=== PATIENT | female | born 1955 | race Hispanic/Latino ===

== ENCOUNTER 2021-05-08 16:33 | Emergency (ER) | payer BC, SELFPAY ==
[2021-05-08 17:09] LABS: Urine Blood Negative (Negative); Urine Glucose 2+ (Negative); Urine Protein Negative (Negative)
[2021-05-08 17:25] LABS: Hematocrit 39.5 % (36.0-45.0); RBC Red Blood Cell Count 4.18 M/uL (3.86-4.86)
[2021-05-08 17:26] LABS: Absolute Lymphocytes (CBC) 3.7 K/uL (0.7-4.9); Lymphocytes % 41.7 % (15.3-44.8); MPV 8.2 fL (7.6-11.3)
[2021-05-08 17:29] LABS: Protime INR 1.11
[2021-05-08 17:32] LABS: Barbiturates NEGATIVE (NEGATIVE); Benzodiazepines NEGATIVE (NEGATIVE); Cocaine NEGATIVE (NEGATIVE); METHAMPHETAM NEGATIVE (NEGATIVE); Methadone NEGATIVE (NEGATIVE); Opiates NEGATIVE (NEGATIVE); Phencyclidine NEGATIVE (NEGATIVE); THC Cannibis NEGATIVE (NEGATIVE)
[2021-05-08 17:45] LABS: ALT/SGPT 71 U/L (12-78); AST/SGOT 63 U/L (15-37); Albumin 4.4 g/dL (3.4-5.0); Alkaline Phosphatase 92 U/L (45-117); BUN Blood Urea Nitrogen 11 mg/dL (7-18); Bicarbonate 22 mmol/L (21-32); Bilirubin Total 0.3 mg/dL (0.2-1.0); Glucose Level 251 mg/dL (74-106); Potassium 3.4 mmol/L (3.5-5.1); Protein, Total 8.1 g/dL (6.4-8.2); Sodium Level 135 mmol/L (136-145)
[2021-05-08 17:47] LABS: Bilirubin Direct 0.1 mg/dL (0-0.2)
[2021-05-08] MEDS ORDERED: ACETAMINOPHEN 325 MG TABLET ONE (20:18)
--- OUTSIDE RECORDS SUMMARY | 2021-05-09 00:16 | XMS REPORT | Continuity of Care Document ---
:1955 Author Organization [facility] t Address [address] [place] [address] Dr. Lugo. [address] [place] [address] Care Team Providers Name Role Phone PCP, DOES NOT HAVE A Primary Care Physician Unavailable Yony Ceja MD Attending Clinician DR STELLA Attending Clinician Unavailable Provider, Urgent Care Attending Clinician Unavailable Clement DEXTER Attending Clinician Doctor Unassigned, Name Attending Clinician Unavailable Pcp, Does Not Have A Attending Clinician Bernie RN, T Attending Clinician Unavailable Only, Test Attending Clinician Unavailable Dennis MONTIEL Attending Clinician Brittany CRUZ S Attending Clinician Horacio SIM Attending Clinician Unavailable Yony CEJA Attending Clinician Unavailable WENDY Attending Clinician Unavailable DR STELLA Admitting Clinician Unavailable WENDY Admitting Clinician Unavailable Payers Payer Name Policy Type Policy Number Effective Date Expiration Date S ource Problems Condition Condition Condition Status Onset Resolution Last Treating Co mments Source Name Details Category Date Date Treatment Clinician Date Type 2 Type 2 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 1-21 ity of mellitus mellitus 00:00: [place] without without 00 Medical complicati complicati Br anch on, on, without without long-term long-term current current use of use of insulin insulin Arthritis Arthritis Disease Active 2015-02 Uni vers 1-11 ity of 00:00: [place] 00 [facility] Branch Hyperchole Hyperchole Disease Active U nivers sterolemia sterolemia 5-06 it y of 00:00: [place] 00 [facility] Essential Essential Disease Active 2016-0 Uni vers hypertensi hypertensi - it y of on on 00:00: [place] 00 Medical Branch Insomnia Insomnia Disease Active Unive rs 5- ity of 00:00: [place] 00 Medical Branch Allergies, Adverse Reactions, Alerts Allergy Allergy Status Severity Reaction(s) Onset Inactive Treating Comm ents Source Name Type Date Date Clinician Codeine Propensi Active Nausea Univers ty to and/or 09-18 ity of adverse Vomiting 00:00: [place] reaction 00 Medical s Branch Penicill Propensi Active Nausea Univer s ins ty to and/or 09-18 ity of adverse Vomiting 00:00: [place] reaction 00 Medical s Branch CODEINE DRUG Active N/V Univers INGREDI 09-18 ity of 00:00: [place] 00 Medical Branch PENICILL Drug Active N/V Univers INS Class 09-18 ity of 00:00: [place] 00 Medical Branch Social History Social Habit Start Date Stop Date Quantity Comments Source Exposure to Not sure [facility] SARS-CoV-2 (event) Medica l Branch Tobacco use and 2020-01-04 2020-01-04 Never used [facility] exposure 00:00:00 00:00:00 Medical Branch Alcohol intake 2020-01-04 2020-01-04 0 /d [facility] 00:00:00 00:00:00 Medical Branch Sex [birth year] [facility] 00:00:00 00:00:00 Medical Branch Smoking Status Start Date Stop Date Source Never smoker [facility] Medications Ordered Filled Start Stop Current Ordering Indication Dosage Frequency Signature Comments Components Source Medication Medication Date Date Medication? Clinician (SIG) Name Name meloxicam Yes 7.5mg Take 1 Unive rs 7.5 mg 9-23 tablet by ity of tablet 00:00: mouth [place] 00 daily. Medical Branch meloxicam Yes 7.5mg Take 1 Unive rs 7.5 mg 7-22 tablet by ity of tablet 00:00: mouth [place] 00 daily. Medical Branch meloxicam Yes 7.5mg Take 1 Unive rs 7.5 mg 7-22 tablet by ity of tablet 00:00: mouth [place] 00 daily. Medical Branch meloxicam Yes 7.5mg Take 1 Unive rs 7.5 mg 7-22 tablet by ity of tablet 00:00: mouth [place] 00 daily. Medical Branch meloxicam 2020- No 7.5mg Take 7.5 Un tiki 7.5 mg TbDL 7-21 08-21 mg by ity of 00:00: 04:59 mouth [place] 00 :00 daily for Medical 30 days. Branch meloxicam 2020- No 7.5mg Take 7.5 Un tiki 7.5 mg TbDL 7-21 08-21 mg by ity of 00:00: 04:59 mouth [place] 00 :00 daily for Medical 30 days. Branch meloxicam Yes 7.5mg Take 7.5 Uni vers 7.5 mg TbDL 3-26 mg by ity of 00:00: mouth [place] 00 daily. Medical Branch meloxicam Yes 7.5mg Take 1 Unive rs 7.5 mg 3-26 tablet by ity of tablet 00:00: mouth [place] 00 daily. Medical Branch meloxicam Yes 7.5mg Take 1 Unive rs 7.5 mg 3-26 tablet by ity of tablet 00:00: mouth [place] 00 daily. Medical Branch meloxicam Yes 7.5mg Take 1 Unive rs 7.5 mg 3-26 tablet by ity of tablet 00:00: mouth [place] 00 daily. Medical Branch meloxicam Yes 7.5mg Take 1 Unive rs 7.5 mg 3-26 tablet by ity of tablet 00:00: mouth [place] 00 daily. Medical Branch meloxicam 2020- No 7.5mg Take 1 Univ ers 7.5 mg 3-26 09-23 tablet by ity of tablet 00:00: 00:00 mouth [place] 00 :00 daily. Medical Branch meloxicam 2020- No 7.5mg Take 7.5 Un tiki 7.5 mg TbDL 3-26 03-26 mg by ity of 00:00: 00:00 mouth [place] 00 :00 daily. Medical Branch MAGNESIUM 2019-02 Yes Take by Univ ers OXIDE/MAG 1-16 mouth. ity of AA CHELATE 23:17: [place] (MAGNESIUM, 31 Medical OXIDE/AA Branch CHELATE, ORAL) ELISABETH 2019-02 Yes Take by Univers ASPIRIN 1-16 mouth. ity of ORAL 23:17: [place] [id number] Medical Branch MAGNESIUM 2020- Yes Take by Univ ers OXIDE/MAG 1-16 mouth. ity of AA CHELATE 23:17: [place] (MAGNESIUM, 31 Medical OXIDE/AA Branch CHELATE, ORAL) ELISABETH 2019-02 Yes Take by Univers ASPIRIN 1-16 mouth. ity of ORAL 23:17: [place] [address] Medical Branch MAGNESIUM 2019-02 Yes Take by Univ ers OXIDE/MAG 1-16 mouth. ity of AA CHELATE 23:17: [place] (MAGNESIUM, 31 Medical OXIDE/AA Branch CHELATE, ORAL) ELISABETH 2019-02 Yes Take by Univers ASPIRIN 1-16 mouth. ity of ORAL 23:17: [place] [address] Medical Branch MAGNESIUM 2019-02 Yes Take by Univ ers OXIDE/MAG 1-16 mouth. ity of AA CHELATE 23:17: [place] (MAGNESIUM, 31 Medical OXIDE/AA Branch CHELATE, ORAL) ELISABETH 2019-02 Yes Take by Univers ASPIRIN 1-16 mouth. ity of ORAL 23:17: [place] [address] Medical Branch MAGNESIUM 2019-02 Yes Take by Univ ers OXIDE/MAG 1-16 mouth. ity of AA CHELATE 23:17: [place] (MAGNESIUM, 31 Medical OXIDE/AA Branch CHELATE, ORAL) ELISABETH 2019-02 Yes Take by Univers ASPIRIN 1-16 mouth. ity of ORAL 23:17: [place] [address] Medical Branch MAGNESIUM 2019- Yes Take by Univ ers OXIDE/MAG 1-16 mouth. ity of AA CHELATE 17:17: [place] (MAGNESIUM, 31 Medical OXIDE/AA Branch CHELATE, ORAL) ELISABETH 2019-02 Yes Take by Univers ASPIRIN 1-16 mouth. ity of ORAL 17:17: [place] [address] Medical Branch MAGNESIUM 2019-02 Yes Take by Univ ers OXIDE/MAG 1-16 mouth. ity of AA CHELATE 17:17: [place] (MAGNESIUM, 31 Medical OXIDE/AA Branch CHELATE, ORAL) meloxicam 2019-02 Yes 7.5mg Take 7.5 Uni vers 7.5 mg TbDL 0-19 mg by ity of 00:00: mouth [place] 00 daily. Medical Branch meloxicam 2019-02 Yes 7.5mg Take 7.5 Uni vers 7.5 mg TbDL 0-19 mg by ity of 00:00: mouth [place] 00 daily. Medical Branch meloxicam 2020-1 Yes 7.5mg Take 7.5 Uni vers 7.5 mg TbDL 0-19 mg by ity of 00:00: mouth [place] 00 daily. Medical Branch meloxicam 2019-02 Yes 7.5mg Take 7.5 Uni vers 7.5 mg TbDL 0-19 mg by ity of 00:00: mouth [place] 00 daily. Medical Branch meloxicam 2019-02 Yes 7.5mg Take 7.5 Uni vers 7.5 mg TbDL 0-19 mg by ity of 00:00: mouth [place] 00 daily. Medical Branch meloxicam 2019-02- No 7.5mg Take 7.5 Un tiki 7.5 mg TbDL 0-19 03-26 mg by ity of 00:00: 00:00 mouth [place] 00 :00 daily. Medical Branch meloxicam No [id number] 15mg Take 1 U nivers 15 mg 6-05 07-06 tablet by ity of tablet 00:00: 04:59 mouth [place] 00 :00 daily for Medical 30 days. Branch triamcinolo 2019-2019- No 40mg Unive rs ne 07-09 ity of acetonide 15:30: 14:21 [place] (KENALOG) 00 :00 Medical injection Branch 40 mg triamcinolo 2019-2019- No 40mg 40 mg, Uni vers ne 07-09 Intramuscu ity of acetonide 15:30: 14:21 [place], ONCE, [place] (KENALOG[place] 00 :00 1 dose, Medical injection Fri Branch 40 mg 07/10/19 at 1030, Routine triamcinolo 2019-2019- No 40mg Unive rs ne 07-09 ity of acetonide 15:30: 14:21 [place] (KENALOG) 00 :00 Medical injection Branch 40 mg triamcinolo 2019-2019- No 40mg 40 mg, Uni vers ne 07-09 Intramuscu ity of acetonide 15:30: 14:21 [place]CE, [place] (KENALOG) 00 :00 1 dose, Medical injection Fri Branch 40 mg 07/10/19 at 1030, Routine METFORMIN 2017-02 Yes [id number] TAKE 2 U nivers ER 500 mg 1-08 TABLETS ity of 24 hr 00:00: TWICE A [place] tablet 00 DAY WITH Medical MEALS Branch METFORMIN 2017-02 Yes [id number] TAKE 2 U nivers ER 500 mg 1-08 TABLETS ity of 24 hr 00:00: TWICE A [place] tablet DAY WITH Medical MEALS Branch METFORMIN 2017-02 Yes [id number] TAKE 2 U nivers ER 500 mg 1-08 TABLETS ity of 24 hr 00:00: TWICE A [place] tablet DAY WITH Medical MEALS Branch METFORMIN 2017-02 Yes [id number] TAKE 2 U nivers ER 500 mg 1-08 TABLETS ity of 24 hr 00:00: TWICE A [place] tablet DAY WITH Medical MEALS Branch METFORMIN 2017-02 Yes [id number] TAKE 2 U nivers ER 500 mg 1-08 TABLETS ity of 24 hr 00:00: TWICE A [place] tablet DAY WITH Medical MEALS Branch METFORMIN 2017-02 Yes [id number] TAKE 2 U nivers ER 500 mg 1-08 TABLETS ity of 24 hr 00:00: TWICE A [place] tablet DAY WITH Medical MEALS Branch METFORMIN 2017-02 Yes [id number] TAKE 2 U nivers ER 500 mg 1-08 TABLETS ity of 24 hr 00:00: TWICE A [place] tablet DAY WITH Medical MEALS Branch METFORMIN 2017-02 Yes [id number] TAKE 2 U nivers ER 500 mg 1-08 TABLETS ity of 24 hr 00:00: TWICE A [place] tablet DAY WITH Medical MEALS Branch METFORMIN 2017-02 Yes [id number] TAKE 2 U nivers ER 500 mg 1-08 TABLETS ity of 24 hr 00:00: TWICE A [place] tablet DAY WITH [facility] Branch METFORMIN 2017-02 Yes [id number] TAKE 2 U nivers ER 500 mg 1-08 TABLETS ity of 24 hr 00:00: TWICE A [place] tablet DAY WITH Medical MEALS Branch METFORMIN 2017-02 Yes [id number] TAKE 2 U nivers ER 500 mg 1-08 TABLETS ity of 24 hr 00:00: TWICE A [place] tablet DAY WITH Medical MEALS Branch METFORMIN 2017-02 Yes [id number] TAKE 2 U nivers ER 500 mg 1-08 TABLETS ity of 24 hr 00:00: TWICE A [place] tablet DAY WITH Medical MEALS Branch METFORMIN 2017-02 Yes [id number] TAKE 2 U nivers ER 500 mg 1-08 TABLETS ity of 24 hr 00:00: TWICE A [place] tablet DAY WITH Medical MEALS Branch METFORMIN 2017-02 Yes [id number] TAKE 2 U nivers ER 500 mg 1-08 TABLETS ity of 24 hr 00:00: TWICE A [place] tablet 00 DAY WITH Medical MEALS Branch METFORMIN 2017- Yes [id number] TAKE 2 U nivers ER 500 mg 1-08 TABLETS ity of 24 hr 00:00: TWICE A [place] tablet DAY WITH Medical MEALS Branch METFORMIN 2018- Yes [id number] TAKE 2 U nivers ER 500 mg 1-08 TABLETS ity of 24 hr 00:00: TWICE A [place] tablet DAY WITH Medical MEALS Branch METFORMIN 2017- Yes [id number] TAKE 2 U nivers ER 500 mg 1-08 TABLETS ity of 24 hr 00:00: TWICE A [place] tablet DAY WITH Medical MEALS Branch METFORMIN 2017-02 Yes [id number] TAKE 2 U nivers ER 500 mg 1-08 TABLETS ity of 24 hr 00:00: TWICE A [place] tablet DAY WITH Medical MEALS Branch ONETOUCH 2018-0 Yes USE ONE Univer s ULTRA BLUE 8-28 STRIP TO ity o f TEST STRIP 00:00: CHECK [place] strip 00 GLUCOSE Medical ONCE DAILY Branch AND NEEDED ONETOUCH 2017-0 Yes USE ONE Univer s ULTRA BLUE 8-28 STRIP TO ity o f TEST STRIP 00:00: CHECK [place] strip 00 GLUCOSE Medical ONCE DAILY Branch AND NEEDED ONETOUCH 2018-0 Yes USE ONE Univer s ULTRA BLUE 8-28 STRIP TO ity o f TEST STRIP 00:00: CHECK [place] strip 00 GLUCOSE Medical ONCE DAILY Branch AND NEEDED ONETOUCH 2018-0 Yes USE ONE Univer s ULTRA BLUE 8-28 STRIP TO ity o f TEST STRIP 00:00: CHECK [place] strip 00 GLUCOSE Medical ONCE DAILY Branch AND NEEDED ONETOUCH 2018-0 Yes USE ONE Univer s ULTRA BLUE 8-28 STRIP TO ity o f TEST STRIP 00:00: CHECK [place] strip 00 GLUCOSE Medical ONCE DAILY Branch AND NEEDED ONETOUCH 2018-0 Yes USE ONE Univer s ULTRA BLUE 8-28 STRIP TO ity o f TEST STRIP 00:00: CHECK [place] strip 00 GLUCOSE Medical ONCE DAILY Branch AND NEEDED ONETOUCH 2018-0 Yes USE ONE Univer s ULTRA BLUE 8-28 STRIP TO ity o f TEST STRIP 00:00: CHECK [place] strip 00 GLUCOSE Medical ONCE DAILY Branch AND NEEDED ONETOUCH 2018-0 Yes USE ONE Univer s ULTRA BLUE 8-28 STRIP TO ity o f TEST STRIP 00:00: CHECK [place] strip 00 GLUCOSE Medical ONCE DAILY Branch AND NEEDED ONETOUCH [id number] Yes USE ONE Univer s ULTRA BLUE 8-28 STRIP TO ity o f TEST STRIP 00:00: CHECK [place] strip 00 GLUCOSE Medical ONCE DAILY Branch AND NEEDED ONETOUCH [id number] Yes USE ONE Univer s ULTRA BLUE 8-28 STRIP TO ity o f TEST STRIP 00:00: CHECK [place] strip 00 GLUCOSE Medical ONCE DAILY Branch AND NEEDED ONETOUCH 0 Yes USE ONE Univer s ULTRA BLUE 8-28 STRIP TO ity o f TEST STRIP 00:00: CHECK [place] strip 00 GLUCOSE Medical ONCE DAILY Branch AND NEEDED ONETOUCH 0 Yes USE ONE Univer s ULTRA BLUE 8-28 STRIP TO ity o f TEST STRIP 00:00: CHECK [place] strip 00 GLUCOSE Medical ONCE DAILY Branch AND NEEDED ONETOUCH 0 Yes USE ONE Univer s ULTRA BLUE 8-28 STRIP TO ity o f TEST STRIP 00:00: CHECK [place] strip 00 GLUCOSE Medical ONCE DAILY Branch AND NEEDED ONETOUCH 0 Yes USE ONE Univer s ULTRA BLUE 8-28 STRIP TO ity o f TEST STRIP 00:00: CHECK [place] strip 00 GLUCOSE Medical ONCE DAILY Branch AND NEEDED ONETOUCH Yes USE ONE Univer s ULTRA BLUE 8-28 STRIP TO ity o f TEST STRIP 00:00: CHECK [place] strip 00 GLUCOSE Medical ONCE DAILY Branch AND NEEDED ONETOUCH 0 Yes USE ONE Univer s ULTRA BLUE 8-28 STRIP TO ity o f TEST STRIP 00:00: CHECK [place] strip 00 GLUCOSE Medical ONCE DAILY Branch AND NEEDED ONETOUCH 0 Yes USE ONE Univer s ULTRA BLUE 8-28 STRIP TO ity o f TEST STRIP 00:00: CHECK [place] strip 00 GLUCOSE Medical ONCE DAILY Branch AND NEEDED ONETOUCH 0 Yes USE ONE Univer s ULTRA BLUE 8-28 STRIP TO ity o f TEST STRIP 00:00: CHECK [place] strip 00 GLUCOSE Medical ONCE DAILY Branch AND NEEDED TRESIBA Yes [id number] 40U INJECT 40 U nivers FLEXTOUCH 8-21 UNITS ity of U-200 200 00:00: UNDER THE [place] unit/mL (3 00 SKIN DAILY Med ical mL) InPn Branch TRESIBA Yes [id number] 40U INJECT 40 U nivers FLEXTOUCH 8-21 UNITS ity of U-200 200 00:00: UNDER THE [place] unit/mL (3 00 SKIN DAILY Med [facility]) [facility] [id number] 40U INJECT 40 U nivers FLEXTOUCH 8-21 UNITS ity of U-200 200 00:00: UNDER THE [place] unit/mL (3 00 SKIN DAILY Med ical mL) [facility] Yes [id number] 40U INJECT 40 U nivers FLEXTOUCH 8-21 UNITS ity of U-200 200 00:00: UNDER THE [place] unit/mL (3 00 SKIN DAILY Med ical mL) [facility] 0 Yes [id number] 40U INJECT 40 U nivers FLEXTOUCH 8-21 UNITS ity of U-200 200 00:00: UNDER THE [place] unit/mL (3 00 SKIN DAILY Med ical mL) [facility] Yes [id number] 40U INJECT 40 U nivers FLEXTOUCH 8-21 UNITS ity of U-200 200 00:00: UNDER THE [place] unit/mL (3 00 SKIN DAILY Med ical mL) [facility] Yes [id number] 40U INJECT 40 U nivers FLEXTOUCH 8-21 UNITS ity of U-200 200 00:00: UNDER THE [place] unit/mL (3 00 SKIN DAILY Med ical mL) [facility] 0 Yes [id number] 40U INJECT 40 U nivers FLEXTOUCH 8-21 UNITS ity of U-200 200 00:00: UNDER THE [place] unit/mL (3 00 SKIN DAILY Med ical mL) [facility] Yes [id number] 40U INJECT 40 U nivers FLEXTOUCH 8-21 UNITS ity of U-200 200 00:00: UNDER THE [place] unit/mL (3 00 SKIN DAILY Med ical mL) [facility] Yes [id number] 40U INJECT 40 U nivers FLEXTOUCH 8-21 UNITS ity of U-200 200 00:00: UNDER THE [place] unit/mL (3 00 SKIN DAILY Med ical mL) [facility] Yes [id number] 40U INJECT 40 U nivers FLEXTOUCH 8-21 UNITS ity of U-200 200 00:00: UNDER THE [place] unit/mL (3 00 SKIN DAILY Med ical mL) [facility] Yes [id number] 40U INJECT 40 U nivers FLEXTOUCH 8-21 UNITS ity of U-200 200 00:00: UNDER THE [place] unit/mL (3 00 SKIN DAILY Med ical mL) [facility] Yes [id number] 40U INJECT 40 U nivers FLEXTOUCH 8-21 UNITS ity of U-200 200 00:00: UNDER THE [place] unit/mL (3 00 SKIN DAILY Med ical mL) [facility] Yes [id number] 40U INJECT 40 U nivers FLEXTOUCH 8-21 UNITS ity of U-200 200 00:00: UNDER THE [place] unit/mL (3 00 SKIN DAILY Med ical mL) [facility] Yes [id number] 40U INJECT 40 U nivers FLEXTOUCH 8-21 UNITS ity of U-200 200 00:00: UNDER THE [place] unit/mL (3 00 SKIN DAILY Med ical mL) [facility] Yes [id number] 40U INJECT 40 U nivers FLEXTOUCH 8-21 UNITS ity of U-200 200 00:00: UNDER THE [place] unit/mL (3 00 SKIN DAILY Med ical mL) [facility] Yes [id number] 40U INJECT 40 U nivers FLEXTOUCH 8-21 UNITS ity of U-200 200 00:00: UNDER THE [place] unit/mL (3 00 SKIN DAILY Med ical mL) [facility] Yes [id number] 40U INJECT 40 U nivers FLEXTOUCH 8-21 UNITS ity of U-200 200 00:00: UNDER THE [place] unit/mL (3 00 SKIN DAILY Med ical mL) [facility] ATORVASTATI Yes TAKE 1 Univ ers N 40 mg 7-25 TABLET AT ity of tablet 00:00: BEDTIME [address] ATORVASTATI Yes TAKE 1 Univ ers N 40 mg 7-25 TABLET AT ity of tablet 00:00: BEDTIME [address] ATORVASTATI Yes TAKE 1 Univ ers N 40 mg 7-25 TABLET AT ity of tablet 00:00: BEDTIME Medical Branch ATORVASTATI [id number] Yes TAKE 1 Univ ers N 40 mg 7-25 TABLET AT ity of tablet 00:00: BEDTIME Medical Branch ATORVASTATI 2018-0 Yes TAKE 1 Univ ers N 40 mg 7-25 TABLET AT ity of tablet 00:00: BEDTIME Medical Branch ATORVASTATI 20180 Yes TAKE 1 Univ ers N 40 mg 7-25 TABLET AT ity of tablet 00:00: BEDTIME Medical Branch ATORVASTATI 0 Yes TAKE 1 Univ ers N 40 mg 7-25 TABLET AT ity of tablet 00:00: BEDTIME Medical Branch ATORVASTATI 0 Yes TAKE 1 Univ ers N 40 mg 7-25 TABLET AT ity of tablet 00:00: BEDTIME Medical Branch ATORVASTATI 0 Yes TAKE 1 Univ ers N 40 mg 7-25 TABLET AT ity of tablet 00:00: BEDTIME Medical Branch ATORVASTATI 0 Yes TAKE 1 Univ ers N 40 mg 7-25 TABLET AT ity of tablet 00:00: BEDTIME Medical Branch ATORVASTATI 0 Yes TAKE 1 Univ ers N 40 mg 7-25 TABLET AT ity of tablet 00:00: BEDTIME Medical Branch ATORVASTATI 20180 Yes TAKE 1 Univ ers N 40 mg 7-25 TABLET AT ity of tablet 00:00: BEDTIME Medical Branch ATORVASTATI 0 Yes TAKE 1 Univ ers N 40 mg 7-25 TABLET AT ity of tablet 00:00: BEDTIME Medical Branch ATORVASTATI 2018-0 Yes TAKE 1 Univ ers N 40 mg 7-25 TABLET AT ity of tablet 00:00: BEDTIME Medical Branch ATORVASTATI 20180 Yes TAKE 1 Univ ers N 40 mg 7-25 TABLET AT ity of tablet 00:00: BEDTIME Medical Branch ATORVASTATI 2018-0 Yes TAKE 1 Univ ers N 40 mg 7-25 TABLET AT ity of tablet 00:00: BEDTIME Medical Branch ATORVASTATI 0 Yes TAKE 1 Univ ers N 40 mg 7-25 TABLET AT ity of tablet 00:00: BEDTIME Medical Branch ATORVASTATI 2018-0 Yes TAKE 1 Univ ers N 40 mg 7-25 TABLET AT ity of tablet 00:00: BEDTIME [address] PIROXICAM 0 Yes [id number] TAKE 1 Uni vers 20 mg 2-09 CAPSULE ity of capsule 00:00: DAILY WITH [address] PIROXICAM 0 Yes [id number] TAKE 1 Uni vers 20 mg 2-09 CAPSULE ity of capsule 00:00: DAILY WITH [address] PIROXICAM Yes [id number] TAKE 1 Uni vers 20 mg 2-09 CAPSULE ity of capsule 00:00: DAILY WITH [address] PIROXICAM Yes [id number] TAKE 1 Uni vers 20 mg 2-09 CAPSULE ity of capsule 00:00: DAILY WITH [address] PIROXICAM Yes [id number] TAKE 1 Uni vers 20 mg 2-09 CAPSULE ity of capsule 00:00: DAILY WITH [address] PIROXICAM Yes [id number] TAKE 1 Uni vers 20 mg 2-09 CAPSULE ity of capsule 00:00: DAILY WITH [address] PIROXICAM Yes [id number] TAKE 1 Uni vers 20 mg 2-09 CAPSULE ity of capsule 00:00: DAILY WITH [address] PIROXICAM Yes [id number] TAKE 1 Uni vers 20 mg 2-09 CAPSULE ity of capsule 00:00: DAILY [address] [id number] TAKE 1 Uni vers 20 mg 2-09 CAPSULE ity of capsule 00:00: DAILY WITH [address] PIROXICAM 0 Yes [id number] TAKE 1 Uni vers 20 mg 2-09 CAPSULE ity of capsule 00:00: DAILY WITH [address] PIROXICAM Yes [id number] TAKE 1 Uni vers 20 mg 2-09 CAPSULE ity of capsule 00:00: DAILY WITH [address] PIROXICAM Yes [id number] TAKE 1 Uni vers 20 mg 2-09 CAPSULE ity of capsule 00:00: DAILY WITH [address] PIROXICAM Yes [id number] TAKE 1 Uni vers 20 mg 2-09 CAPSULE ity of capsule 00:00: [place]ILY [place] BREAKFAST Medical Branch PIROXICAM 2018-0 Yes [id number] TAKE 1 Uni vers 20 mg 2-09 CAPSULE ity of capsule 00:00: DAILY WITH [place] BREAKFAST Medical Branch PIROXICAM 2018-0 Yes [id number] TAKE 1 Uni vers 20 mg 2-09 CAPSULE ity of capsule 00:00: DAILY [place] BREAKFAST [place] Branch PIROXICAM 2018-0 Yes [id number] TAKE 1 Uni vers 20 mg 2-09 CAPSULE ity of capsule 00:00: DAILY [place] BREAKFAST [place] Branch PIROXICAM 2018-0 Yes [id number] TAKE 1 Uni vers 20 mg 2-09 CAPSULE ity of capsule 00:00: [place]ILY [place] [facility] insulin Yes [id number] 10U inject Univ ers aspart 1-03 10-15 ity of (NOVOLOG 00:00: Units [place] FLEXPEN) 00 under the Medica l 100 unit/mL skin 3 Branch injection (three) times daily before meals. Insulin Yes [id number] Use as Univ ers [place], 1-03 directed- ity of Disposable, 00:00: 5 times [place] (LISA PEN 00 daily Medical NEEDLE) 32 Branch gauge x 5/32" Ndle insulin Yes [id number] 10U inject Univ ers aspart 1-03 10-15 ity of (NOVOLOG 00:00: Units [place] FLEXPEN) 00 under the Medica l 100 unit/mL skin 3 Branch injection (three) times daily before meals. Insulin Yes [id number] Use as Univ ers [place], 1-03 directed- ity of Disposable, 00:00: 5 times [place] (LISA PEN 00 daily Medical NEEDLE) 32 Branch gauge x 5/32" Ndle insulin 2017- Yes [id number] 10U inject Univ ers aspart 1-03 10-15 ity of (NOVOLOG 00:00: Units [place] FLEXPEN) 00 under the Medica l 100 unit/mL skin 3 Branch injection (three) times daily before meals. Insulin Yes [id number] Use as Univ ers [place], 1-03 directed- ity of Disposable, 00:00: 5 times [place] (LISA PEN 00 daily Medical NEEDLE) 32 Branch gauge x 5/32" Ndle insulin 2017- Yes [id number] 10U inject Univ ers aspart 1-03 10-15 ity of (NOVOLOG 00:00: Units [place] FLEXPEN) 00 under the Medica l 100 unit/mL skin 3 Branch injection (three) times daily before meals. Insulin 2018-0 Yes [id number] Use as Univ ers [place], 1-03 directed- ity of Disposable, 00:00: 5 times [place] (LISA PEN 00 daily Medical NEEDLE) 32 Branch gauge x 5/32" Ndle insulin 2018-0 Yes [id number] 10U inject Univ ers aspart 1-03 10-15 ity of (NOVOLOG 00:00: Units [place] FLEXPEN) 00 under the Medica l 100 unit/mL skin 3 Branch injection (three) times daily before meals. Insulin 2018-0 Yes [id number] Use as Univ ers [place], 1-03 directed- ity of Disposable, 00:00: 5 times [place] (LISA PEN 00 daily Medical NEEDLE) 32 Branch gauge x 5/32" Ndle insulin 2018-0 Yes [id number] 10U inject Univ ers aspart 1-03 10-15 ity of (NOVOLOG 00:00: Units [place] FLEXPEN) 00 under the Medica l 100 unit/mL skin 3 Branch injection (three) times daily before meals. Insulin 2018-0 Yes [id number] Use as Univ ers [place], 1-03 directed- ity of Disposable, 00:00: 5 times [place] (LISA PEN 00 daily Medical NEEDLE) 32 Branch gauge x 5/32" Ndle insulin 2018-0 Yes [id number] 10U inject Univ ers aspart 1-03 10-15 ity of (NOVOLOG 00:00: Units [place] FLEXPEN) 00 under the Medica l 100 unit/mL skin 3 Branch injection (three) times daily before meals. Insulin 2018-0 Yes [id number] Use as Univ ers [place], 1-03 directed- ity of Disposable, 00:00: 5 times [place] (LISA PEN 00 daily Medical NEEDLE) 32 Branch gauge x 5/32" Ndle insulin 2018-0 Yes [id number] 10U inject Univ ers aspart 1-03 10-15 ity of (NOVOLOG 00:00: Units [place] FLEXPEN) 00 under the Medica l 100 unit/mL skin 3 Branch injection (three) times daily before meals. Insulin 2018-0 Yes [id number] Use as Univ ers [place], 1-03 directed- ity of Disposable, 00:00: 5 times [place] (LISA PEN 00 daily Medical NEEDLE) 32 Branch gauge x 5/32" Ndle insulin 2018-0 Yes [id number] 10U inject Univ ers aspart 1-03 10-15 ity of (NOVOLOG 00:00: Units [place] FLEXPEN) 00 under the Medica l 100 unit/mL skin 3 Branch injection (three) times daily before meals. Insulin 2018-0 Yes [id number] Use as Univ ers [place], 1-03 directed- ity of Disposable, 00:00: 5 times [place] (LISA PEN 00 daily Medical NEEDLE) 32 Branch gauge x 5/32" Ndle insulin 2017-0 Yes [id number] 10U inject Univ ers aspart 1-03 10-15 ity of (NOVOLOG 00:00: Units [place] FLEXPEN) 00 under the Medica l 100 unit/mL skin 3 Branch injection (three) times daily before meals. Insulin 2017-0 Yes [id number] Use as Univ ers [place], 1-03 directed- ity of Disposable, 00:00: 5 times [place] as (LISA PEN 00 daily Medical NEEDLE) 32 Branch gauge x 5/32" Ndle insulin 2017-0 Yes [id number] 10U inject Univ ers aspart 1-03 10-15 ity of (NOVOLOG 00:00: Units [place] FLEXPEN) 00 under the Medica l 100 unit/mL skin 3 Branch injection (three) times daily before meals. Insulin 2017-0 Yes [id number] Use as Univ ers [place], 1-03 directed- ity of Disposable, 00:00: 5 times [place] as (LISA PEN 00 daily Medical NEEDLE) 32 Branch gauge x 5/32" Ndle insulin 2017-0 Yes [id number] 10U inject Univ ers aspart 1-03 10-15 ity of (NOVOLOG 00:00: Units [place] FLEXPEN) 00 under the Medica l 100 unit/mL skin 3 Branch injection (three) times daily before meals. Insulin 2018-0 Yes [id number] Use as Univ ers [place], 1-03 directed- ity of Disposable, 00:00: 5 times [place] (LISA PEN 00 daily Medical NEEDLE) 32 Branch gauge x 5/32" Ndle insulin 2018-0 Yes [id number] 10U inject Univ ers aspart 1-03 10-15 ity of (NOVOLOG 00:00: Units [place] FLEXPEN) 00 under the Medica l 100 unit/mL skin 3 Branch injection (three) times daily before meals. Insulin 2017-0 Yes [id number] Use as Univ ers [place], 1-03 directed- ity of Disposable, 00:00: 5 times [place] (LISA PEN 00 daily Medical NEEDLE) 32 Branch gauge x 5/32" Ndle insulin 2017-0 Yes [id number] 10U inject Univ ers aspart 1-03 10-15 ity of (NOVOLOG 00:00: Units [place] FLEXPEN) 00 under the Medica l 100 unit/mL skin 3 Branch injection (three) times daily before meals. Insulin 2017- Yes [id number] Use as [facility] ers [place], 1-03 directed- ity of Disposable, 00:00: 5 times [place] (LISA PEN 00 daily Medical NEEDLE) 32 Branch gauge x 5/32" Ndle insulin Yes [id number] 10U inject Univ ers aspart 1-03 10-15 ity of (NOVOLOG 00:00: Units [place] FLEXPEN) 00 under the Medica l 100 unit/mL skin 3 Branch injection (three) times daily before meals. Insulin Yes [id number] Use as Univ ers [place], 1-03 directed- ity of Disposable, 00:00: 5 times [place] (LISA PEN 00 daily Medical NEEDLE) 32 Branch gauge x 5/32" Ndle insulin Yes [id number] 10U inject Univ ers aspart 1-03 10-15 ity of (NOVOLOG 00:00: Units [place] FLEXPEN) 00 under the Medica l 100 unit/mL skin 3 Branch injection (three) times daily before meals. Insulin Yes [id number] Use as Univ ers [place], 1-03 directed- ity of Disposable, 00:00: 5 times [place] (LISA PEN 00 daily Medical NEEDLE) 32 Branch gauge x 5/32" Ndle insulin 2017-0 Yes [id number] 10U inject Univ ers aspart 1-03 10-15 ity of (NOVOLOG 00:00: Units [place] FLEXPEN) 00 under the Medica l 100 unit/mL skin 3 Branch injection (three) times daily before meals. Insulin 0 Yes [id number] Use as [facility] ers [place], 1-03 directed- ity of Disposable, 00:00: 5 times [place] (LISA PEN 00 daily Medical NEEDLE) 32 Branch gauge x 5/32" Ndle insulin 2018-0 Yes [id number] 10U inject Univ ers aspart 1-03 10-15 ity of (NOVOLOG 00:00: Units [place] FLEXPEN) 00 under the Medica l 100 unit/mL skin 3 Branch injection (three) times daily before meals. Insulin Yes [id number] Use as [facility] ers [place], -03 directed- ity of Disposable, 00:00: 5 times [place] (LISA PEN 00 daily Medical NEEDLE) 32 Branch gauge x 5/32" Ndle multivitami 2016-02 Yes 1{capsu Take 1 Cap Univers n capsule 2-27 le} by mouth ity of 14:27: daily. [address] MAGNESIUM 2016-02 Yes Take by Univ ers OXIDE/MAG 2-27 mouth. ity of AA CHELATE 14:27: [place] (MAGNESIUM, 17 Medical OXIDE/AA Branch CHELATE, ORAL) ELISABETH 2016-02 Yes Take by Univers ASPIRIN 2-27 mouth. ity of ORAL 14:27: [address] multivitami 2016-02 Yes 1{capsu Take 1 Cap Univers n capsule 2-27 le} by mouth ity of 14:27: daily. [address] MAGNESIUM 2016-02 Yes Take by Univ ers OXIDE/MAG 2-27 mouth. ity of AA CHELATE 14:27: [place] (MAGNESIUM, 17 Medical OXIDE/AA Branch CHELATE, ORAL) ELISABETH 2016-02 Yes Take by Univers ASPIRIN 2-27 mouth. ity of ORAL 14:27: [address] multivitami 2016-02 Yes 1{capsu Take 1 Cap Univers n capsule 2-27 le} by mouth ity of 14:27: daily. [address] multivitami 2016-02 Yes 1{capsu Take 1 Cap Univers n capsule 2-27 le} by mouth ity of 14:27: daily. [address] MAGNESIUM 2016-02 Yes Take by Univ ers OXIDE/MAG 2-27 mouth. ity of AA CHELATE 14:27: [place] (MAGNESIUM, 17 Medical OXIDE/AA Branch CHELATE, ORAL) ELISABETH 2016-02 Yes Take by Univers ASPIRIN 2-27 mouth. ity of ORAL 14:27: [address] MAGNESIUM 2016-02 Yes Take by Univ ers OXIDE/MAG 2-27 mouth. ity of AA CHELATE 14:27: [place] (MAGNESIUM, 17 Medical OXIDE/AA Branch CHELATE, ORAL) ELISABETH 2016-02 Yes Take by Univers ASPIRIN 2-27 mouth. ity of ORAL 14:27: [address] multivitami 2017- Yes 1{capsu Take 1 Cap Univers n capsule 2-27 le} by mouth ity of 14:27: daily. [address] MAGNESIUM 2016- Yes Take by Univ ers OXIDE/MAG 2-27 mouth. ity of AA CHELATE 14:27: [place] (MAGNESIUM, 17 Medical OXIDE/AA Branch CHELATE, ORAL) ELISABETH 2016-02 Yes Take by Univers ASPIRIN 2-27 mouth. ity of ORAL 14:27: [address] multivitami 2016-02 Yes 1{capsu Take 1 Cap Univers n capsule 2-27 le} by mouth ity of 14:27: daily. [address] MAGNESIUM 2016-02 Yes Take by Univ ers OXIDE/MAG 2-27 mouth. ity of AA CHELATE 14:27: [place] (MAGNESIUM, 17 Medical OXIDE/AA Branch CHELATE, ORAL) ELISABETH 2016-02 Yes Take by Univers ASPIRIN 2-27 mouth. ity of ORAL 14:27: [address] multivitami 2016-02 Yes 1{capsu Take 1 Cap Univers n capsule 2-27 le} by mouth ity of 14:27: daily. [address] MAGNESIUM 2016-02 Yes Take by Univ ers OXIDE/MAG 2-27 mouth. ity of AA CHELATE 14:27: [place] (MAGNESIUM, 17 Medical OXIDE/AA Branch CHELATE, ORAL) ELISABETH 2016-02 Yes Take by Univers ASPIRIN 2-27 mouth. ity of ORAL 14:27: [address] multivitami 2016-02 Yes 1{capsu Take 1 Cap Univers n capsule 2-27 le} by mouth ity of 14:27: daily. [address] multivitami 2017- Yes 1{capsu Take 1 Cap Univers n capsule 2-27 le} by mouth ity of 14:27: daily. [address] multivitami 2017 Yes 1{capsu Take 1 Cap Univers n capsule 2-27 le} by mouth ity of 14:27: daily. [address] multivitami 2017 Yes 1{capsu Take 1 Cap Univers n capsule 2-27 le} by mouth ity of 14:27: daily. [address] multivitami 2017 Yes 1{capsu Take 1 Cap Univers n capsule 2-27 le} by mouth ity of 14:27: daily. [address] multivitami 2017 Yes 1{capsu Take 1 Cap Univers n capsule 2-27 le} by mouth ity of 14:27: daily. [address] MAGNESIUM 2016- Yes Take by Univ ers OXIDE/MAG 2-27 mouth. ity of AA CHELATE 14:27: [place] (MAGNESIUM, 17 Medical OXIDE/AA Branch CHELATE, ORAL) ELISABETH 2016-02 Yes Take by Univers ASPIRIN 2-27 mouth. ity of ORAL 14:27: [address] multivitami 2016-02 Yes 1{capsu Take 1 Cap Univers n capsule 2-27 le} by mouth ity of 14:27: daily. [address] MAGNESIUM 2016-02 Yes Take by Univ ers OXIDE/MAG 2-27 mouth. ity of AA CHELATE 14:27: [place] (MAGNESIUM, 17 Medical OXIDE/AA Branch CHELATE, ORAL) ELISABETH 2016-02 Yes Take by Univers ASPIRIN 2-27 mouth. ity of ORAL 14:27: [address] multivitami 2016-02 Yes 1{capsu Take 1 Cap Univers n capsule 2-27 le} by mouth ity of 14:27: daily. [address] MAGNESIUM 2016-02 Yes Take by Univ ers OXIDE/MAG 2-27 mouth. ity of AA CHELATE 14:27: [place] (MAGNESIUM, 17 Medical OXIDE/AA Branch CHELATE, ORAL) ELISABETH 2016-02 Yes Take by Univers ASPIRIN 2-27 mouth. ity of ORAL 14:27: [address] multivitami 2016-02 Yes 1{capsu Take 1 Cap Univers n capsule 2-27 le} by mouth ity of 14:27: daily. [address] MAGNESIUM 2016-02 Yes Take by Univ ers OXIDE/MAG 2-27 mouth. ity of AA CHELATE 14:27: [place] (MAGNESIUM, 17 Medical OXIDE/AA Branch CHELATE, ORAL) ELISABETH 2016-02 Yes Take by Univers ASPIRIN 2-27 mouth. ity of ORAL 14:27: [address] multivitami 2016-02 Yes 1{capsu Take 1 Cap Univers n capsule 2-27 le} by mouth ity of 08:27: daily. [address] multivitami 2016-02 Yes 1{capsu Take 1 Cap Univers n capsule 2-27 le} by mouth ity of 08:27: daily. [address] meloxicam 2016-02 Yes [id number] 7.5mg Take 1 Un tiki 7.5 mg 2-27 tablet by ity of tablet 00:00: mouth [place] 00 daily. Medical Branch metformin 2016-02 Yes [id number] 1000mg Take 2 Univers ER 500 mg 2-27 tablets by ity of 24 hr 00:00: mouth 2 [place] tablet 00 (two) Medical times Branch daily. meloxicam 2016-02 Yes [id number] 7.5mg Take 1 [place] 7.5 mg 2-27 tablet by ity of tablet 00:00: mouth [place] 00 daily. Medical Branch metformin 2016-02 Yes [id number] 1000mg Take 2 Univers ER 500 mg 2-27 tablets by ity of 24 hr 00:00: mouth 2 [place] tablet 00 (two) Medical times Branch daily. meloxicam 2016-02 Yes [id number] 7.5mg Take 1 [place] 7.5 mg 2-27 tablet by ity of tablet 00:00: mouth [place] 00 daily. Medical Branch metformin 2016-02 Yes [id number] 1000mg Take 2 Univers ER 500 mg 2-27 tablets by ity of 24 hr 00:00: mouth 2 [place] tablet 00 (two) Medical times Branch daily. meloxicam 2016-02 Yes [id number] 7.5mg Take 1 [place] 7.5 mg 2-27 tablet by ity of tablet 00:00: mouth [place] 00 daily. Medical Branch metformin 2016-02 Yes [id number] 1000mg Take 2 Univers ER 500 mg 2-27 tablets by ity of 24 hr 00:00: mouth 2 [place] tablet 00 (two) Medical times Branch daily. meloxicam 2016-02 Yes [id number] 7.5mg Take 1 [place] 7.5 mg 2-27 tablet by ity of tablet 00:00: mouth [place] 00 daily. Medical Branch metformin 2016-02 Yes [id number] 1000mg Take 2 Univers ER 500 mg 2-27 tablets by ity of 24 hr 00:00: mouth 2 [place] tablet 00 (two) Medical times Branch daily. meloxicam 2016-02 Yes [id number] 7.5mg Take 1 [place] 7.5 mg 2-27 tablet by ity of tablet 00:00: mouth [place] 00 daily. Medical Branch metformin 2016-02 Yes [id number] 1000mg Take 2 Univers ER 500 mg 2-27 tablets by ity of 24 hr 00:00: mouth 2 [place] tablet 00 (two) Medical times Branch daily. meloxicam 2016-02 Yes [id number] 7.5mg Take 1 [place] 7.5 mg 2-27 tablet by ity of tablet 00:00: mouth [place] 00 daily. Medical Branch metformin 2016-02 Yes [id number] 1000mg Take 2 Univers ER 500 mg 2-27 tablets by ity of 24 hr 00:00: mouth 2 [place] tablet 00 (two) Medical times Branch daily. meloxicam 2016-02 Yes [id number] 7.5mg Take 1 [place] 7.5 mg 2-27 tablet by ity of tablet 00:00: mouth [place] 00 daily. Medical Branch metformin 2016-02 Yes [id number] 1000mg Take 2 Univers ER 500 mg 2-27 tablets by ity of 24 hr 00:00: mouth 2 [place] tablet 00 (two) Medical times Branch daily. meloxicam 2016-02 Yes [id number] 7.5mg Take 1 [place] 7.5 mg 2-27 tablet by ity of tablet 00:00: mouth [place] 00 daily. Medical Branch metformin 2016-02 Yes [id number] 1000mg Take 2 Univers ER 500 mg 2-27 tablets by ity of 24 hr 00:00: mouth 2 [place] tablet 00 (two) Medical times Branch daily. meloxicam 2016-02 Yes [id number] 7.5mg Take 1 [place] 7.5 mg 2-27 tablet by ity of tablet 00:00: mouth [place] 00 daily. Medical Branch metformin 2016-02 Yes [id number] 1000mg Take 2 Univers ER 500 mg 2-27 tablets by ity of 24 hr 00:00: mouth 2 [place] tablet 00 (two) Medical times Branch daily. metformin 2016-02 Yes [id number] 1000mg Take 2 Univers ER 500 mg 2-27 tablets by ity of 24 hr 00:00: mouth 2 [place] tablet 00 (two) Medical times Branch daily. metformin 2016-02 Yes [id number] 1000mg Take 2 Univers ER 500 mg 2-27 tablets by ity of 24 hr 00:00: mouth 2 [place] tablet 00 (two) Medical times Branch daily. metformin 2016-02 Yes [id number] 1000mg Take 2 Univers ER 500 mg 2-27 tablets by ity of 24 hr 00:00: mouth 2 [place] tablet 00 (two) Medical times Branch daily. metformin 2016-02 Yes [id number] 1000mg Take 2 Univers ER 500 mg 2-27 tablets by ity of 24 hr 00:00: mouth 2 [place] tablet 00 (two) Medical times Branch daily. metformin 2016-02 Yes [id number] 1000mg Take 2 Univers ER 500 mg 2-27 tablets by ity of 24 hr 00:00: mouth 2 [place] tablet 00 (two) Medical times Branch daily. meloxicam 2016-02 Yes [id number] 7.5mg Take 1 [place] 7.5 mg 2-27 tablet by ity of tablet 00:00: mouth [place] 00 daily. Medical Branch metformin 2016-02 Yes [id number] 1000mg Take 2 Univers ER 500 mg 2-27 tablets by ity of 24 hr 00:00: mouth 2 [place] tablet 00 (two) Medical times Branch daily. meloxicam 2016-02 Yes [id number] 7.5mg Take 1 [place] 7.5 mg 2-27 tablet by ity of tablet 00:00: mouth [place] 00 daily. Medical Branch metformin 2016-02 Yes [id number] 1000mg Take 2 Univers ER 500 mg 2-27 tablets by ity of 24 hr 00:00: mouth 2 [place] tablet 00 (two) Medical times Branch daily. meloxicam 2016-02 Yes [id number] 7.5mg Take 1 [place] 7.5 mg 2-27 tablet by ity of tablet 00:00: mouth [place] 00 daily. Medical Branch metformin 2016-02 Yes [id number] 1000mg Take 2 Univers ER 500 mg 2-27 tablets by ity of 24 hr 00:00: mouth 2 [place] tablet 00 (two) Medical times Branch daily. meloxicam 2016-02- No [id number] 7.5mg Take 1 U nivers 7.5 mg 2-27 03-26 tablet by ity of tablet 00:00: 00:00 mouth [place] 00 :00 daily. Medical Branch valsartan-h 2014-02 Yes 1{tbl} Take 1 Tab Univers ydrochlorot 0-13 by mouth ity of hiazide 00:00: daily. [place] (DIOVAN-HCT 00 Medical ) 320-25 mg Branch per tablet valsartan-h 2014-02 Yes 1{tbl} Take 1 Tab Univers ydrochlorot 0-13 by mouth ity of hiazide 00:00: daily. [place] (DIOVAN-HCT Medical ) 320-25 mg Branch per tablet valsartan-h 2014-02 Yes 1{tbl} Take 1 Tab Univers ydrochlorot 0-13 by mouth ity of hiazide 00:00: daily. [place] (DIOVAN-[facility]CT [facility] ) 320-25 mg Branch per tablet valsartan-h 2014-02 Yes 1{tbl} Take 1 Tab Univers ydrochlorot 0-13 by mouth ity of hiazide 00:00: daily. [place] (DIOVAN-[facility]CT [facility] ) 320-25 mg Branch per tablet valsartan-h 2014-02 Yes 1{tbl} Take 1 Tab Univers ydrochlorot 0-13 by mouth ity of hiazide 00:00: daily. [place] (DIOVAN-[facility]CT [facility] ) 320-25 mg Branch per tablet valsartan-h 2014-02 Yes 1{tbl} Take 1 Tab Univers ydrochlorot 0-13 by mouth ity of hiazide 00:00: daily. [place] (DIOVAN-[facility]CT [facility] ) 320-25 mg Branch per tablet valsartan-h 2014-02 Yes 1{tbl} Take 1 Tab Univers ydrochlorot 0-13 by mouth ity of hiazide 00:00: daily. [place] (DIOVAN-[facility]CT [facility] ) 320-25 mg Branch per tablet valsartan-h 2014-02 Yes 1{tbl} Take 1 Tab Univers ydrochlorot 0-13 by mouth ity of hiazide 00:00: daily. [place] ([facility] ) 320-25 mg Branch per tablet valsartan-h 2014-02 Yes 1{tbl} Take 1 Tab Univers ydrochlorot 0-13 by mouth ity of hiazide 00:00: daily. [place] ([facility] ) 320-25 mg Branch per tablet valsartan-h 2014-02 Yes 1{tbl} Take 1 Tab Univers ydrochlorot 0-13 by mouth ity of hiazide 00:00: daily. [place] ([facility]CT [facility] ) 320-25 mg Branch per tablet valsartan-h 2014-02 Yes 1{tbl} Take 1 Tab Univers ydrochlorot 0-13 by mouth ity of hiazide 00:00: daily. [place] ([facility] ) 320-25 mg Branch per tablet valsartan-h 2014-02 Yes 1{tbl} Take 1 Tab Univers ydrochlorot 0-13 by mouth ity of hiazide 00:00: daily. [place] ([facility] ) 320-25 mg Branch per tablet valsartan-h 2014-02 Yes 1{tbl} Take 1 Tab Univers ydrochlorot 0-13 by mouth ity of hiazide 00:00: daily. [place] ([facility] ) 320-25 mg Branch per tablet valsartan-h 2014-02 Yes 1{tbl} Take 1 Tab Univers ydrochlorot 0-13 by mouth ity of hiazide 00:00: daily. [place] ([facility]OVAN-[facility] ) 320-25 mg Branch per tablet valsartan-h 2014-02 Yes 1{tbl} Take 1 Tab Univers ydrochlorot 0-13 by mouth ity of hiazide 00:00: daily. [place] ([facility] ) 320-25 mg Branch per tablet valsartan-h 2014-02 Yes 1{tbl} Take 1 Tab Univers ydrochlorot 0-13 by mouth ity of hiazide 00:00: daily. [place] ([facility]AN-[facility] ) 320-25 mg Branch per tablet valsartan-h 2014-02 Yes 1{tbl} Take 1 Tab Univers ydrochlorot 0-13 by mouth ity of hiazide 00:00: daily. [place] ([facility]AN-[facility] ) 320-25 mg Branch per tablet valsartan-h 2014-02 Yes 1{tbl} Take 1 Tab Univers ydrochlorot 0-13 by mouth ity of hiazide 00:00: daily. [place] ([facility]OVAN-[facility] ) 320-25 mg Branch per tablet clopidogrel 2014-02 Yes 75mg Take 75 mg Univers (PLAVIX) 75 0-12 by mouth ity of mg tablet 00:00: daily. [address] Branch fenofibrate 2014-02 Yes 134mg Take 134 U nivers micronized 0-12 mg by ity of (LOFIBRA) 00:00: mouth [place] 134 mg 00 daily. Medical capsule Branch clopidogrel 2014-02 Yes 75mg Take 75 mg Univers (PLAVIX) 75 0-12 by mouth ity of mg tablet 00:00: daily. [place] 00 Medical Branch fenofibrate 2014-02 Yes 134mg Take 134 U nivers micronized 0-12 mg by ity of (LOFIBRA) 00:00: mouth [place] 134 mg 00 daily. Medical capsule Branch clopidogrel 2014-02 Yes 75mg Take 75 mg Univers (PLAVIX) 75 0-12 by mouth ity of mg tablet 00:00: daily. Medical Branch fenofibrate 2014-02 Yes 134mg Take 134 U nivers micronized 0-12 mg by ity of (LOFIBRA) 00:00: mouth [place] 134 mg 00 daily. Medical capsule Branch clopidogrel 2014-02 Yes 75mg Take 75 mg Univers (PLAVIX) 75 0-12 by mouth ity of mg tablet 00:00: daily. Medical Branch fenofibrate 2014-02 Yes 134mg Take 134 U nivers micronized 0-12 mg by ity of (LOFIBRA) 00:00: mouth [place] 134 mg 00 daily. Medical capsule Branch clopidogrel 2014-02 Yes 75mg Take 75 mg Univers (PLAVIX) 75 0-12 by mouth ity of mg tablet 00:00: daily. Medical Branch fenofibrate 2014-02 Yes 134mg Take 134 U nivers micronized 0-12 mg by ity of (LOFIBRA) 00:00: mouth [place] 134 mg 00 daily. Medical capsule Branch clopidogrel 2014-02 Yes 75mg Take 75 mg Univers (PLAVIX) 75 0-12 by mouth ity of mg tablet 00:00: daily. Medical Branch fenofibrate 2014-02 Yes 134mg Take 134 U nivers micronized 0-12 mg by ity of (LOFIBRA) 00:00: mouth [place] 134 mg 00 daily. Medical capsule Branch clopidogrel 2014-02 Yes 75mg Take 75 mg Univers (PLAVIX) 75 0-12 by mouth ity of mg tablet 00:00: daily. Medical Branch fenofibrate 2014-02 Yes 134mg Take 134 U nivers micronized 0-12 mg by ity of (LOFIBRA) 00:00: mouth [place] 134 mg 00 daily. Medical capsule Branch clopidogrel 2014-02 Yes 75mg Take 75 mg Univers (PLAVIX) 75 0-12 by mouth ity of mg tablet 00:00: daily. Medical Branch fenofibrate 2014-02 Yes 134mg Take 134 U nivers micronized 0-12 mg by ity of (LOFIBRA) 00:00: mouth [place] 134 mg 00 daily. Medical capsule Branch fenofibrate 2014-02 Yes 134mg Take 134 U nivers micronized 0-12 mg by ity of (LOFIBRA) 00:00: mouth [place] 134 mg 00 daily. Medical capsule Branch fenofibrate 2014-02 Yes 134mg Take 134 U nivers micronized 0-12 mg by ity of (LOFIBRA) 00:00: mouth [place] 134 mg 00 daily. Medical capsule Branch fenofibrate 2014-02 Yes 134mg Take 134 U nivers micronized 0-12 mg by ity of (LOFIBRA) 00:00: mouth [place] 134 mg 00 daily. Medical capsule Branch fenofibrate 2014-02 Yes 134mg Take 134 U nivers micronized 0-12 mg by ity of (LOFIBRA) 00:00: mouth [place] 134 mg 00 daily. Medical capsule Branch clopidogrel 2014-02 Yes 75mg Take 75 mg Univers (PLAVIX) 75 0-12 by mouth ity of mg tablet 00:00: daily. Medical Branch fenofibrate 2014-02 Yes 134mg Take 134 U nivers micronized 0-12 mg by ity of (LOFIBRA) 00:00: mouth [place] 134 mg 00 daily. Medical capsule Branch fenofibrate 2014-02 Yes 134mg Take 134 U nivers micronized 0-12 mg by ity of (LOFIBRA) 00:00: mouth [place] 134 mg 00 daily. Medical capsule Branch fenofibrate 2014-02 Yes 134mg Take 134 U nivers micronized 0-12 mg by ity of (LOFIBRA) 00:00: mouth [place] 134 mg 00 daily. Medical capsule Branch clopidogrel 2014-02 Yes 75mg Take 75 mg Univers (PLAVIX) 75 0-12 by mouth ity of mg tablet 00:00: daily. Medical Branch fenofibrate 2014-02 Yes 134mg Take 134 U nivers micronized 0-12 mg by ity of (LOFIBRA) 00:00: mouth [place] 134 mg 00 daily. Medical capsule Branch clopidogrel 2014-02 Yes 75mg Take 75 mg Univers (PLAVIX) 75 0-12 by mouth ity of mg tablet 00:00: daily. Medical Branch fenofibrate 2014-02 Yes 134mg Take 134 U nivers micronized 0-12 mg by ity of (LOFIBRA) 00:00: mouth [place] 134 mg 00 daily. Medical capsule Branch clopidogrel 2014-02 Yes 75mg Take 75 mg Univers (PLAVIX) 75 0-12 by mouth ity of mg tablet 00:00: daily. [place] 00 Medical Branch fenofibrate 2014-02 Yes 134mg Take 134 U nivers micronized 0-12 mg by ity of (LOFIBRA) 00:00: mouth [place] 134 mg 00 daily. Medical capsule Branch clopidogrel 2014-02- No 75mg Take 75 mg Univers (PLAVIX) 75 0-12 03-26 by mouth ity of mg tablet 00:00: 00:00 daily. [place] 00 : Medical Branch clopidogrel 2014-02- No 75mg Take 75 mg Univers (PLAVIX) 75 0-12 -26 by mouth ity of mg tablet 00:00: 00:00 daily. [place] 00 :00 Medical Branch Vital Signs Vital Name Observation Time Observation Value Comments Source Systolic blood 2020-01-04 23:18:00 146 mm[Hg] Univer sity of pressure [facility] Diastolic blood 2020-01-04 23:18:00 71 mm[Hg] Unive rsity of [facility] Heart rate 2020-01-04 23:18:00 93 /min [facility] Body temperature 2020-01-04 23:18:00 37.17 Melodie [facility] Respiratory rate 2020-01-04 23:18:00 18 /min [facility] Body height 2020-01-04 23:18:00 158.8 cm [facility] Body weight 2020-01-04 23:18:00 72.576 kg [facility] BMI 2020-01-04 23:18:00 28.80 kg/m2 [facility] Oxygen saturation in 2020-01-04 23:18:00 96 /min [facility] Arterial blood by [facility] Pulse oximetry Branch Systolic blood 2020-01-04 23:18:00 146 mm[Hg] Univer sity of pressure [facility] Diastolic blood 2020-01-04 23:18:00 71 mm[Hg] Unive rsity of pressure [facility] Heart rate 2020-01-04 23:18:00 93 /min [facility] Body temperature 2020-01-04 23:18:00 37.17 Melodie Univ ersity of [facility] Respiratory rate 2020-01-04 23:18:00 18 /min Univ ersity of [facility] Body height 2020-01-04 23:18:00 158.8 cm Universi ty of [facility] Body weight 2020-01-04 23:18:00 72.576 kg Universi ty of [place] [facility] BMI 2020-01-04 23:18:00 28.80 kg/m2 Universi ty of [facility] Oxygen saturation in 2020-01-04 23:18:00 96 /min [facility] Arterial blood by [facility] Pulse oximetry Branch Systolic blood 2019-07-10 13:54:00 150 mm[Hg] Univer sity of pressure [facility] Branch Diastolic blood 2019-07-10 13:54:00 67 mm[Hg] Unive rsity of pressure [facility] Heart rate 2019-07-10 13:54:00 103 /min Universi ty of [facility] Body temperature 2019-07-10 13:54:00 37.17 Melodie Univ ersity of [facility] Body height 2019-07-10 13:54:00 160 cm Universi ty of [place] [facility] Body weight 2019-07-10 13:54:00 73.029 kg Universi ty of [place] [facility] BMI 2019-07-10 13:54:00 28.52 kg/m2 Universi ty of [facility] Systolic blood 2019-07-10 13:54:00 150 mm[Hg] Univer sity of pressure [facility] Branch Diastolic blood 2019-07-10 13:54:00 67 mm[Hg] Unive rsity of pressure [facility] Heart rate 2019-07-10 13:54:00 103 /min Universi ty of [facility] Body temperature 2019-07-10 13:54:00 37.17 Melodie [address]ity of [facility] Body height 2019-07-10 13:54:00 160 cm Universi ty of [facility] Body weight 2019-07-10 13:54:[address] [facility] Branch BMI 2019-07-10 13:54:00 28.52 kg/m2 Universi ty of [facility] Branch Procedures Procedure Date / Time Performed Performing Clinician Sourc e XR SHOULDER <2 VW 2019-07-10 13:57:59 Bryan Sim [facility] BILATERAL Medical Branch ASSIGNMENT OF BENEFITS 2019-07-10 13:45:11 Doctor Unassigned, No [facility] Name Medical Branch Encounters Start End Encounter Admission Attending Care Care Encounter Source Date/Time Date/Time Type Type Clinicians Facility Department ID 2020-11-10 2020-11-10 Telephone Marcial [facility] [id number] Univers 00:00:00 00:00:00 [facility] 350.1.13.10 it y of [place] 4.2.7.2.686 Tony as Reese?Blea [phone] Hi dical iliana [address] [facility] 2020-11-09 2020-11-09 [facility] [id number] Univers 00:00:00 00:00:00 [facility] 350.1.13.10 it y of Surgical 4.2.7.2.686 Tony as Specialti [phone] Hi dical es 198 [facility] 2020-09-07 2020-09-07 [facility] [id number] Univers 00:00:00 00:00:00 [facility] 350.1.13.10 it y of Surgical 4.2.7.2.686 Tony as Specialti [id number] Hi dicmartine Mendoza [facility] 2020-06-03 2020-06-03 Outpatient Jabari DOUGLAS [facility] [id number] [place] 11:50:00 11:50:00 [facility] 2020-05-13 2020-05-13 Telephone [facility] 1.2.840.114 [id number] Univers 00:00:00 00:00:00 [facility] 350.1.13.10 it y of Surgical 4.2.7.2.686 Tony as Specialti [id number] Hi dical es [address] [place] [address] 2020-01-04 2020-01-04 Outpatient R [facility] [id number] Univers 19:40:00 19:40:00 [id number] ity [facility] 2020-01-04 2020-01-04 Outpatient R [facility] [id number] Univers 19:40:00 19:40:00 ity of [facility] 2020-01-04 2020-01-04 Urgent Provider, [facility] [id number] 16:59:08 17:19:08 [facility] 350.1.13.10 Care [place] 4.2.7.2.686 Professio [id number] [place] [address] Office Building [facility] 2020-01-04 2020-01-04 Urgent Provider, [facility] [place] 1.2.840.114 [id number] [facility] 16:59:08 17:19:08 Care Clutier, Yenni [facility] 350.1.13.10 ity of [place] 4.2.7.2.686 Tony as Professio [phone] Hi dical [address] Office [facility] 2020-01-04 2020-01-04 Letter Doctor ESTEBAN 1.2.840.114 [id number] 00:00:00 00:00:00 (Out) Unassigned, CRISTIAN 350.1.13.10 [place] [facility] 4.2.7.2.686 [id number] [facility] 2020-01-04 2020-01-04 Letter Pcp, [facility] 1.2.840.114 [id number] 00:00:00 00:00:00 (Out) Patient Health 350.1.13.10 Does Not [place] 4.2.7.2.686 Have A Professio [phone] [address] 2020-01-04 2020-01-04 Letter Doctor ORELLANA 1.2.840.114 [id number] Univers 00:00:00 00:00:00 (Out) Unassigned, CRISTIAN 350.1.13.10 ity of [place] [facility] 4.2.7.2.686 Tony as [phone] [address] 2020-01-04 2020-01-04 Letter Pcp, [facility] 1.2.840.114 [id number] Univers 00:00:00 00:00:00 (Out) Patient Health 350.1.13.10 it y of Does Not [place] 4.2.7.2.686 [place] Have A Professio [phone] Hi dic[address] Office Building [facility] 2019-12-07 2019-12-07 Telephone Marcial AZANALISA 1.2.840.114 [id number] 00:00:00 00:00:00 [facility] 350.1.13.10 Surgical 4.2.7.2.686 Specialti [id number] es 198 [place] 2019-12-07 2019-12-07 Telephone Marcial [facility] 1.2.840.114 [id number] Univers 00:00:00 00:00:00 [facility] 350.1.13.10 it y of Surgical 4.2.7.2.686 Tony as Specialti [phone] Hi dical es 198 [facility] 2019-10-16 2019-10-16 Letter ESTEBAN Gibbs 1.2.840.114 [id number] Univers 00:00:00 00:00:00 (Out) Harper FOSTER 350.1.13.10 it y of HOSPITAL 4.2.7.2.686 Tony as [phone] [address] 2019-10-16 2019-10-16 Letter ESTEBAN Gibbs 1.2.840.114 [id number] 00:00:00 00:00:00 (Out) Harper FOSTER 350.1.13.10 [facility] 4.2.7.2.686 [id number] [facility] 2019-10-12 2019-10-12 Laboratory Only, [facility] Test [facility] 1.2.840. 114 [id number] [facility] 08:10:13 08:25:13 Only Dennis Art Alma Delia 350.1.13.10 ity [facility] 4.2.7.2.686 [place] [facility] [phone] [address] 2019-10-12 2019-10-12 Laboratory Only, [facility] 1.2.840.114 [id number] 08:10:13 08:25:13 Only Test Alma Delia 350.1.13.10 [place] 4.2.7.2.686 [place] [id number] [facility] 2019-10-12 2019-10-12 Outpatient R [facility] [id number] -[id number] Univers 08:15:00 08:15:00 [id number] ity of [facility] 2019-10-12 2019-10-12 Outpatient R [facility] [id number] Univers 08:15:00 08:15:00 ity of [facility] 2019-07-22 2019-07-22 Telephone [facility] 1.2.794.602 [id number] Univers 00:00:00 00:00:00 [facility] 350.1.13.10 it y of Surgical 4.2.7.2.686 Tony as Specialti [phone] Me dical es 198 [facility] 2019-07-22 2019-07-22 [facility] [id number] 00:00:00 00:00:00 [facility] 350.1.13.10 Surgical 4.2.7.2.686 Specialti [phone] es 198 [place] 2019-07-10 2019-07-10 Outpatient R [facility] [id number] Univers 08:57:59 23:59:00 BRYAN ity [facility] 2019-07-10 2019-07-10 [facility] 1.2.840.114 [id number] 08:57:00 23:59:00 Encounter [facility] 350.1.13.10 Surgical 4.2.7.2.686 Specialti [id number] es 809 [place] 2019-07-10 2019-07-10 [facility] 1.2.840.114 [id number] [facility] 08:57:00 23:59:00 Encounter [facility] 350.1.13.10 ity of Surgical 4.2.7.2.686 Tony as Specialti [phone] Hi dical es 809 [facility] 2019-07-10 2019-07-10 Office [facility] 1.2.840.114 [id number] 08:46:40 09:01:40 Visit [facility] 350.1.13.10 Surgical 4.2.7.2.686 Specialti [id number] es 198 [place] 2019-07-10 2019-07-10 [facility] 1.2.840.114 [id number] [facility] 08:46:40 09:01:40 Visit [facility] 350.1.13.10 it y of Surgical 4.2.7.2.686 Tony as Specialti [phone] Hi dical es 198 [facility] 2019-07-10 2019-07-10 Outpatient R BRITTANY [facility] [id number] -[id number] Univers 09:00:00 09:00:00 BRYAN [id number] ity [facility] 2019-07-10 2019-07-10 [facility] 1.2.840.114 [id number] 00:00:00 00:00:00 (Out) [facility] 350.1.13.10 Surgical 4.2.7.2.686 Specialti [id number] es 198 [place] 2019-07-10 2019-07-10 Orders Doctor ESTEBAN 1.2.840.114 [id number] Univers 00:00:00 00:00:00 Only Unassigned, CRISTIAN 350.1.13.10 ity of [place] [facility] 4.2.7.2.686 Tony as [phone] [address] 2019-07-10 2019-07-10 [facility] 1.2.840.114 [id number] Univers 00:00:00 00:00:00 (Out) [facility] 350.1.13.10 it y of Surgical 4.2.7.2.686 Tony as Specialti [id number] Hi dical es 198 [facility] 2019-07-09 2019-07-09 Outpatient Zac CEJA [facility] [id number] Univers 08:45:00 08:45:00 [facility] [id number] 2019-07-09 2019-07-09 Outpatient Zac CEJA [facility] [id number] Univers 08:45:00 08:45:00 [facility] 2006-09-18 2006-09-18 Emergency X WENDY [facility] ERT [id number] Univers 07:45:00 08:46:00 DEYANIRA 1 ity o f [facility] Results Test Description Test Time Test Comments Results Result Sour e Comments XR SHOULDER <2 VW 2019-07-10 There are signs Un iversity of BILATERAL 14:13:51 of degeneration [place] [facility] ical with superior Branch humeral migration. ?
--- NOTE | 2021-05-09 01:15 | ER ---
Nurse's Notes [facility] Name: Re Black Age: 65 yrs Sex: Female : 1955 Arrival Date: 05/08/2021 Time: 16:35 Bed 17 Private MD: Diagnosis: Alcohol use, unspecified with intoxication;Suicidal ideations-Resolved Presentation: 05/08 16:43 Chief complaint: Patient states: "I am okay, I am just drunk". Pt states "my daughter ismael took my grandkids away because she is mad at me". Pt states [place] [employer] brought her here but she didn't want to come. Pt states "I drank 2 bottles of wine and some beers to make the pain stop". Pt crying in triage. Coronavirus screen: At this time, the client does not indicate any symptoms associated with coronavirus-19. Ebola Screen: No symptoms or risks identified at this time. Initial Sepsis Screen: Does the patient meet any 2 criteria? HR > 90 bpm. Does the patient have a suspected source of infection? No. Patient's initial sepsis screen is negative. Risk Assessment: Do you want to hurt yourself or someone else? Patient reports no desire to harm self or others. Onset of symptoms was May 08, 2021. 16:43 Method Of Arrival: Ambulatory aa5 16:43 Acuity: MELINDA 2 aa5 16:47 Note Walking patient back to Room 17 pt stated "I had a gun right next to me but the aa5 police took it away from me", pt continues denying suicidal ideation. Historical: - Allergies: 16:45 Codeine; aa5 16:45 PENICILLINS; aa5 - PMHx: 16:45 Diabetes - NIDDM; Hypertension; aa5 - Immunization history:: Adult Immunizations unknown. - Social history:: Smoking status: Patient denies any tobacco usage or history of. Patient/guardian denies using alcohol, street drugs. Screenin:44 Abuse screen: patient is a threat to herself. Nutritional screening: No deficits noted. ap3 Tuberculosis screening: No symptoms or risk factors identified. Fall Risk Fall in past 12 months (25 points). Secondary diagnosis (15 points) ETOH abuse. IV access (20 points). Ambulatory Aid- None/Bed Rest/Nurse Assist (0 pts). Gait- Impaired (20 pts.). Mental Status- Overestimates/Forgets Limitations (15 pts.). Total Andujar Fall Scale indicates High Risk Score (45 or more points). Fall prevention measures have been instituted. Side Rails Up X 2 Placed Close to Nursing Station Frequent Obs/Assessments Occuring As available patient and family educated on Fall Prevention Program and Strategies. Assessment: 17:43 General: Appears distressed, Behavior is crying. Pain: Denies pain. Neuro: Level of ap3 Consciousness is awake, alert, Oriented to person, place, time, situation, Speech is slurred. Cardiovascular: Patient's skin is warm and dry. Respiratory: Airway is patent Respiratory effort is even, unlabored. 17:51 Reassessment: Patient and/or family updated on plan of care and expected duration. Pain ap3 level reassessed. Patient is alert, oriented x 3, equal unlabored respirations, skin warm/dry/pink. patient sitting up in bed crying. . 18:15 Reassessment: patient states, "I'm all cried out and I am ready to go home now." ap3 Provider notified. 18:36 Reassessment: patient sitting on edge of bed, patient is quiet and wiping tears from ap3 her face. 19:15 Reassessment: Patient is alert, oriented x 3, equal unlabored respirations, skin ke1 warm/dry/pink. 19:30 Reassessment: Patient is alert, oriented x 3, equal unlabored respirations, skin ke1 warm/dry/pink. General: Appears in no apparent distress. Behavior is calm, cooperative. Pain: Denies pain. Neuro: Level of Consciousness is awake, alert, Oriented to person, place, time, situation, States " I will not drink again like that in my life". Cardiovascular: Capillary refill < 3 seconds Patient's skin is warm and dry. Respiratory: Respiratory effort is even, unlabored, Respiratory pattern is regular, symmetrical. GI: No deficits noted. : No deficits noted. EENT: No deficits noted. Derm: No deficits noted. Musculoskeletal: No deficits noted. 20:00 Reassessment: No changes from previously documented assessment. Patient is alert, ke1 oriented x 3, equal unlabored respirations, skin warm/dry/pink. 21:00 Reassessment: No changes from previously documented assessment. Patient is alert, ke1 oriented x 3, equal unlabored respirations, skin warm/dry/pink. 22:00 Reassessment: No changes from previously documented assessment. Patient is alert, ke1 oriented x 3, equal unlabored respirations, skin warm/dry/pink. 23:00 Reassessment: No changes from previously documented assessment. Patient is alert, ke1 oriented x 3, equal unlabored respirations, skin warm/dry/pink. 05/09 00:00 Reassessment: No changes from previously documented assessment. Patient is alert, ke1 oriented x 3, equal unlabored respirations, skin warm/dry/pink. 01:00 Reassessment: No changes from previously documented assessment. Patient is alert, ke1 oriented x 3, equal unlabored respirations, skin warm/dry/pink. 02:00 Reassessment: sleeping. ke1 03:00 Reassessment: No changes from previously documented assessment. sleeping. ke1 04:00 Reassessment: No changes from previously documented assessment. sleeping. ke1 06:17 Reassessment: See continuation screening packet for C-SSRS. ke1 07:00 Reassessment: No changes from previously documented assessment. Patient and/or family ag7 updated on plan of care and expected duration. Pain level reassessed. Patient is alert, oriented x 3, equal unlabored respirations, skin warm/dry/pink. The patient denies suicidal ideation Patient denies pain at this time. Patient states feeling better. 08:00 Reassessment: No changes from previously documented assessment. Patient and/or family jd3 updated on plan of care and expected duration. Pain level reassessed. Patient is alert, oriented x 3, equal unlabored respirations, skin warm/dry/pink. 09:00 Reassessment: No changes from previously documented assessment. Patient and/or family jd3 updated on plan of care and expected duration. Pain level reassessed. Patient is alert, oriented x 3, equal unlabored respirations, skin warm/dry/pink. 09:30 Reassessment: Patient and/or family updated on plan of care and expected duration. Pain jd3 level reassessed. Patient is alert, oriented x 3, equal unlabored respirations, skin warm/dry/pink. pt reporting to want to speak with provider, provider notified. pt reporting frustration with the process, verbal reassurance given. pt denying want to hurt self or others, denying suicidal thoughts at this time. provider notified and plan for rescreening to be done by [facility] branch customer service representative. 10:49 Reassessment: No changes from previously documented assessment. Patient and/or family ag7 updated on plan of care and expected duration. Pain level reassessed. Patient is alert, oriented x 3, equal unlabored respirations, skin warm/dry/pink. Patient verbalize no suicidal ideation when asked. Patient states feeling better. Patient states symptoms have improved. 11:45 Reassessment: Patient and/or family updated on plan of care and expected duration. Pain jd3 level reassessed. Patient is alert, oriented x 3, equal unlabored respirations, skin warm/dry/pink. provider at bedside discussing plan of care. 12:00 Reassessment: No changes from previously documented assessment. Patient and/or family jd3 updated on plan of care and expected duration. Pain level reassessed. Patient is alert, oriented x 3, equal unlabored respirations, skin warm/dry/pink. 13:00 Reassessment: No changes from previously documented assessment. Patient and/or family jd3 updated on plan of care and expected duration. Pain level reassessed. Patient is alert, oriented x 3, equal unlabored respirations, skin warm/dry/pink. 14:00 Reassessment: No changes from previously documented assessment. Patient and/or family jd3 updated on plan of care and expected duration. Pain level reassessed. Patient is alert, oriented x 3, equal unlabored respirations, skin warm/dry/pink. 15:00 Reassessment: Patient and/or family updated on plan of care and expected duration. Pain jd3 level reassessed. Patient is alert, oriented x 3, equal unlabored respirations, skin warm/dry/pink. family at bedside with pt. talking calmly. awaiting update on disposition. 15:44 Reassessment: [facility] at bedside. jd3 16:41 Reassessment: Patient appears in no apparent distress at this time. Patient and/or jd3 family updated on plan of care and expected duration. Pain level reassessed. Patient is alert, oriented x 3, equal unlabored respirations, skin warm/dry/pink. pt reported understanding of discharge instructions. even and steady gait upon discharge form ER. Vital Signs: 05/08 16:43 BP 159 / 113; Pulse 130; Resp 24 S; Temp 98.3(TE); Pulse Ox 96% on R/A; Weight 72.57 kg aa5 (R); Height 5 ft. 2 in. (157.48 cm) (R); 18:50 BP 128 / 84; Pulse 107; Resp 14 S; Pulse Ox 96% on R/A; Pain 0/10; jg9 05/09 05:58 BP 134 / 66; Pulse 87; Resp 16; Pulse Ox 100% ; ke1 07:00 BP 140 / 78 LA Supine (man/reg); Pulse 91 MON; Resp 18 S; Temp 98.1(O); Pulse Ox 100% ag7 on R/A; Pain 0/10; 05/08 16:43 Body Mass Index 29.26 (72.57 kg, 157.48 cm) aa5 ED Course: 05/08 16:35 Patient arrived in ED. ds1 16:43 Arm band placed on. aa5 16:45 Triage completed. aa5 16:48 Gulshan Nicole NP is PHCP. pm1 16:48 Chadd Zhong MD is Attending Physician. pm1 17:17 Jelly Manzanares, RN is Primary Nurse. ap3 17:49 Patient has correct armband on for positive identification. Placed in gown. Bed in low ap3 position. Side rails up X2. Valuables inventory done. See valuables checklist. sent to security. Patient is placed in psych hold. 18:40 Nurse Practitioner and/or Physician Shrimp Cleaner to see patient. ap3 18:54 notified [facility] to have a screener to evaluate pt. bd 19:01 faxed [facility] to [facility] [place], and [facility]. bd 19:32 Lyle from [facility] Crisis Line called to screen the patient. mw2 21:21 [facility] called asking if we were still seeking placement for the patient. She stated "we mw2 accept covid patients 10 after testing positive". 23:56 IV discontinued, c/o pain on iv site Right ac. ke1 05/09 03:53 faxed patient clinicals to all available psych facilities. mw2 03:54 Primary Nurse role handed off by Jelly Manzanares, RN mw2 04:19 Wally Morris, RN is Primary Nurse. ke1 06:10 faxed the exclusionary form to [facility]. mw2 16:42 No provider procedures requiring assistance completed. Patient did not have IV access jd3 during this emergency room visit. Administered Medications: 05/08 20:17 Drug: Tylenol 650 mg Route: PO; ke1 20:30 Follow up: Response: Marked relief of symptoms ke1 05/09 09:32 Drug: Tylenol 650 mg Route: PO; jd3 09:53 Follow up: Response: No adverse reaction jd3 Outcome: 01:15 ER care complete, transfer ordered by MD. pm1 15:54 Discharge ordered by MD. rn 16:50 Discharged to home ambulatory, with family. jd3 16:50 Condition: stable 16:50 Discharge instructions given to patient, Instructed on discharge instructions, follow up and referral plans. Demonstrated understanding of instructions, follow-up care. 16:51 Patient left the ED. jd3 Signatures: Patria Mendoza Demi ds1 Telly Wheeler MD MD rn Calderon, Audri RN RN aa5 Gulshan Nicole, CORE CLEANER CORE CLEANER pm1 Skyler Bob RN RN jd3 Jelly Manzanares RN RN ap3 Shanique Carrion mw2 Matilde Jarvis RN RN jg9 Wally Morris RN RN ke1 Margarita Edwards, JHONNY RN ag7 Corrections: (The following items were deleted from the chart) 05/08 16:51 16:43 Chief complaint: Patient states: "I am okay, I am just drunk". Pt states "my aa5 daughter took my grandkids away because she is mad at me". Pt states [place] PD brought her here but she didn't want to come. Pt states "I drank 2 bottles of wine and some beers to make the pain stop". Pt crying in triage. aa5 16: 16:43 Acuity: MELINDA 3 aa5 aa5 05/09 04:32 02:00 Reassessment: Patient is alert, oriented x 3, equal unlabored respirations, skin ke1 warm/dry/pink. ke1
--- NOTE | 2021-05-09 01:16 | EDPHYS ---
Physician Documentation [facility] Name: Re Black Age: 65 yrs Sex: Female : 1955 Arrival Date: 05/08/2021 Time: 16:35 Bed 17 Private MD: ED Physician Chadd Zhong HPI: 05/08 18:00 This 65 yrs old Female presents to ER via Ambulatory with complaints of pm1 Suicidal. 18:00 The patient presents to the emergency department with suicide ideation, and the patient pm1 has a plan, to shoot self. Onset: The symptoms/episode began/occurred today. Past psychiatric history: Prior diagnosis: no previous psychiatric diagnosis known, Psychiatric medications include: none, the patient has not had a prior suicide gesture, the patient does not have a previous inpatient psychiatric history. Associated signs and symptoms: Pertinent positives; depression, suicide ideation, Pertinent negatives: chest pain, shortness of breath. Severity of symptoms: in the emergency department the symptoms are worse. The patient has not experienced similar symptoms in the past. The patient has not recently seen a physician. Patient brought by police officers for suicidal ideation. Patient drank 2 bottles of wine and some beers to work up the courage to shoot herself with her gun. forest fire control officer took her gun away. Patient with depression regarding relationship with daughter. Patient was babysitting her grandchildren and required assistance from her ex- to watch the kids. Her daughter got upset that he was involved in watching her grandchildren and told the patient that she would no longer be able to see her grandchild. The patient got upset and she would never be able to see her grandchildren and decided today that she would drink alcohol to work-up the courage to shoot herself. Historical: - Allergies: 16:45 Codeine; aa5 16:45 PENICILLINS; aa5 - PMHx: 16:45 Diabetes - NIDDM; Hypertension; aa5 - Immunization history:: Adult Immunizations unknown. - Social history:: Smoking status: Patient denies any tobacco usage or history of. Patient/guardian denies using alcohol, street drugs. ROS: 18:00 Constitutional: Negative for fever, chills, and weight loss, Cardiovascular: Negative pm1 for chest pain, palpitations, and edema, Respiratory: Negative for shortness of breath, cough, wheezing, and pleuritic chest pain, Abdomen/GI: Negative for abdominal pain, nausea, vomiting, diarrhea, and constipation, MS/Extremity: Negative for injury and deformity, Skin: Negative for injury, rash, and discoloration, Neuro: Negative for headache, weakness, numbness, tingling, and seizure. 18:00 Psych: Positive for suicidal ideation, Negative for homicidal ideation. 18:00 All other systems are negative. Exam: 18:00 Constitutional: This is a well developed, well nourished patient who is awake, alert, pm1 and in no acute distress. Head/Face: Normocephalic, atraumatic. 18:00 Back: No spinal tenderness. No costovertebral tenderness. Full range of motion. 18:00 Skin: Warm, dry with normal turgor. Normal color with no rashes, no lesions, and no evidence of cellulitis. MS/ Extremity: Pulses equal, no cyanosis. Neurovascular intact. Full, normal range of motion. 18:00 Cardiovascular: Exam negative for acute changes, Rate: tachycardic, Rhythm: regular, Pulses: no pulse deficits are appreciated, Heart sounds: normal. 18:00 Respiratory: Exam negative for acute changes, respiratory distress, shortness of breath. 18:00 Abdomen/GI: Exam negative for acute changes, Inspection: abdomen appears normal, Palpation: abdomen is soft and non-tender, in all quadrants. 18:00 Neuro: Exam negative for acute changes, Orientation: is normal, Mentation: is normal, Motor: is normal, moves all fours. 18:00 Psych: Behavior/mood is depressed, Affect is animated, Oriented to person, place, time, Patient having thoughts of suicide. Plan for suicide is shoot self with gun Delusions/hallucinations are not present. Vital Signs: 16:43 BP 159 / 113; Pulse 130; Resp 24 S; Temp 98.3(TE); Pulse Ox 96% on R/A; Weight 72.57 kg aa5 (R); Height 5 ft. 2 in. (157.48 cm) (R); 18:50 BP 128 / 84; Pulse 107; Resp 14 S; Pulse Ox 96% on R/A; Pain 0/10; jg9 05/09 05:58 BP 134 / 66; Pulse 87; Resp 16; Pulse Ox 100% ; ke1 07:00 BP 140 / 78 LA Supine (man/reg); Pulse 91 MON; Resp 18 S; Temp 98.1(O); Pulse Ox 100% ag7 on R/A; Pain 0/10; 05/08 16:43 Body Mass Index 29.26 (72.57 kg, 157.48 cm) aa5 MDM: 05/08 16:48 Patient medically screened. pm1 18:39 Counseling: I had a detailed discussion with the patient and/or guardian regarding: the pm1 historical points, exam findings, and any diagnostic results supporting the discharge/admit diagnosis, the need to transfer to another facility, [facility] does not immediately have the required specialist, psychiatry. 19:04 Data reviewed: vital signs. Data interpreted: Pulse oximetry: on room air is 96 %. pm1 Interpretation: normal. 05/08 17:01 Order name: Acetaminophen pm1 05/08 17:01 Order name: Basic Metabolic Panel pm1 05/08 17:01 Order name: CBC with Diff; Complete Time: 17:57 pm1 05/08 17:01 Order name: ETOH Level; Complete Time: 17:57 pm1 05/08 17:01 Order name: Hepatic Function; Complete Time: 17:57 pm1 05/08 17:01 Order name: PT-INR; Complete Time: 17:57 pm1 05/08 17:01 Order name: Ptt, Activated; Complete Time: 17:57 pm1 05/08 17:01 Order name: Salicylate; Complete Time: 18:06 pm1 05/08 17:01 Order name: Urine Drug Screen; Complete Time: 17:57 pm1 05/08 17:01 Order name: Acetaminophen Level; Complete Time: 17:57 EDMS 05/08 17:02 Order name: Basic Metabolic Panel; Complete Time: 17:57 EDMS 05/08 17:09 Order name: Urine Dipstick-Ancillary; Complete Time: 17:10 EDMS 05/08 18:00 Order name: COVID-19 SARS RT PCR (Document "Date of Onset" if Symptomatic); Complete pm1 Time: 22:35 05/09 06:10 Order name: Glucose, Ancillary Testing; Complete Time: 09:33 EDMS 05/08 17:01 Order name: EKG; Complete Time: 17:02 pm1 05/08 17:01 Order name: EKG - Nurse/Tech; Complete Time: 19:35 pm1 05/08 17:01 Order name: IV Saline Lock; Complete Time: 17:17 pm1 05/08 17:01 Order name: Labs collected and sent; Complete Time: 17:17 pm1 05/08 17:01 Order name: Suicide Precautions; Complete Time: 17:17 pm1 05/08 17:01 Order name: Suicide Screening ([place]); Complete Time: 17:43 pm1 05/08 17:01 Order name: Urine Dipstick-Ancillary (obtain specimen); Complete Time: 17:17 pm1 05/09 06:03 Order name: Diet Finger Food; Complete Time: 06:03 ke05/09 06:14 Order name: Diet Ada 1800 Christofer; Complete Time: 06:14 ke1 05/09 10:38 Order name: Diet Ada 1800 Christofer; Complete Time: 10:38 jd3 Administered Medications: 20:17 Drug: Tylenol 650 mg Route: PO; ke1 20:30 Follow up: Response: Marked relief of symptoms [facility] 05/09 09:32 Drug: Tylenol 650 mg Route: PO; jd3 09:53 Follow up: Response: No adverse reaction jd3 Disposition: 05/08 19:09 Co-signature as Attending Physician, Chadd Zhong MD I agree with the assessment and kdr plan of care. 05/09 15:03 Pt reevaluated by me earlier, patient currently denying suicidal ideations, states was rn intoxicated at the time, and states handed police a gun after being asked if she owned one but denies wanting to shoot herself or harming anyone else. [facility] original record of interview not in chart from last night, asked them to send it over and has not been sent over, they will return at 4 PM today for reevaluation to see if patient can be safely discharged.. 15:53 Pt reevaluated by [facility] mental health, they recommend outpatient treatment, rn patient given information, patient denied suicidal or homicidal thoughts to them and as well to me again. Will dc home per their recommendation. Police have weapon in their custody. . Disposition Summary: 05/09/21 15:54 Discharge Ordered Location: Home rn Problem: new(05/09/21 15:54) rn Symptoms: have improved(05/09/21 15:54) rn Condition: Stable(05/09/21 15:54) rn Diagnosis - Alcohol use, unspecified with intoxication rn - Suicidal ideations - Resolved(05/09/21 15:54) rn Followup: rn - With: Private Physician - When: As needed - Reason: Recheck today's complaints, Re-evaluation by your physician Discharge Instructions: - Discharge Summary Sheet rn - Alcohol Intoxication rn Forms: - Medication Reconciliation Form rn - Thank You Letter rn - Antibiotic metal furniture repairer - Prescription Opioid Use rn Signatures: Dispatcher [employer] EDMS Chadd Zhong MD MD kdr Williams, Irene, RN RN Telly Jefferson MD MD rn Calderon, Audri, RN RN aa5 Gulshan Nicole, BLOCK SAWYER BLOCK SAWYER pm1 Skyler Bob, JHONNY RN Wally Woodall, RN RN ke1 Corrections: (The following items were deleted from the chart) 15:54 01:15 MD pm1 rn 15:54 01:15 Psych Facility pm1 rn 15:54 01:15 Specialty pm1 rn 15:54 01:15 Stable pm1 rn 15:54 01:15 new pm1 rn 15:54 01:15 have improved pm1 rn 15:54 01:15 Suicidal ideations pm1 rn
--- NOTE | 2021-05-09 08:44 | EKG ---
Test Date: 2021-05-08 Test Time: 19:26:02 [place]: TREV MEASUREMENT RESULTS: Intervals: Rate: 100 HI: 126 QRSD: 94 QT: 380 QTc: 490 [place]: P: 28 HI: 126 QRS: 7 T: 19 INTERPRETIVE STATEMENTS: Normal sinus rhythm Prolonged QT Abnormal ECG Compared to ECG 01/17/2016 06:37:17 Prolonged QT interval now present Electronically Signed On 05-09-21 08:42:13 CDT by Juan Carlos Dc
[2021-05-09] MEDS ORDERED: ACETAMINOPHEN 325 MG TABLET ONE (09:27)
[2021-05-09 17:32] VITALS: O2SAT 100
[2021-05-09 17:33] VITALS: BP 140/78; TEMP 98.1
== END 2021-05-09 16:51 | disposition home or self-care (01) ==
LOC: ER 16:33
DX: F10.929 Alcohol use, unspecified with intoxication, unspecified (principal); U07.1 COVID-19; E11.9 Type 2 diabetes mellitus without complications; I10 Essential (primary) hypertension; Z88.0 Allergy status to penicillin; Z88.5 Allergy status to narcotic agent
CPT/HCPCS: 36415; 80048; 80076; 80307; 80320; 80329; 81003; 82947; 85025; 85610; 85730; 93005; 99283; U0003

== ENCOUNTER 2021-06-03 21:31 | Emergency (ER) | payer BC, SELFPAY ==
--- OUTSIDE RECORDS SUMMARY | 2021-06-03 21:36 | XMS REPORT | Continuity of Care Document ---
:1955 Author Organization [facility] t Address [address] [place] [address] Care Team Providers Name Role Phone PCP, [...] diabetes 1-21 ity of mellitus mellitus 00:00: [place] without without 00 Medical complicati complicati Br anch on, on, without without long-term long-term current current use of use of insulin insulin Arthritis Arthritis Disease Active 2015-02 Uni vers 1-11 ity of 00:00: [place] 00 [facility] Hyperchole Hyperchole Disease Active U nivers sterolemia sterolemia 5-06 it y of 00:00: [address] Essential Essential Disease Active Uni vers hypertensi hypertensi 5-06 it y of on on 00:00: [place] [...] Univers INS Class 09-18 ity of 00:00: [place] 00 Medical Branch Social History Social Habit Start Date Stop Date Quantity Comments Source Exposure to Not sure [facility] SARS-CoV-2 (event) Medica l Branch Tobacco use and 2020-01-04 2020-01-04 Never used [facility] exposure 00:00:00 00:00:00 Medical Branch Alcohol intake 2020-01-04 2020-01-04 0 /d [facility] 00:00:00 00:00:00 Medical Branch Sex [birth year] [facility] 00:00:00 00:00:00 Medical Branch Smoking Status Start Date Stop Date Source Never smoker [facility] Medications Ordered Filled Start Stop Current Ordering Indication Dosage Frequency Signature Comments Components Source Medication Medication Date Date Medication? Clinician (SIG) Name Name meloxicam Yes 7.5mg Take 1 Unive rs 7.5 mg 9-23 tablet by ity of tablet 00:00: mouth [place] 00 daily. Medical Branch meloxicam Yes 7.5mg Take 1 Unive rs 7.5 mg 7-22 tablet by ity of tablet 00:00: mouth [place] 00 daily. Medical Branch meloxicam Yes 7.5mg Take 1 Unive rs 7.5 mg 7-22 tablet by ity of tablet 00:00: mouth [place] 00 daily. Medical Branch meloxicam Yes 7.5mg [...] ASPIRIN 1-16 mouth. ity of ORAL 23:17: [place] [address] Medical Branch MAGNESIUM 2019- Yes Take by Univ ers OXIDE/MAG 1-16 mouth. ity of AA CHELATE 23:17: [place] (MAGNESIUM, 31 Medical OXIDE/AA Branch CHELATE, ORAL) ELISABETH 2019-02 Yes Take by Univers ASPIRIN 1-16 mouth. ity of ORAL 23:17: [place] [address] Medical Branch MAGNESIUM 2019-02 Yes Take by Univ ers OXIDE/MAG 1-16 mouth. ity of AA CHELATE 23:17: [place] (MAGNESIUM, 31 Medical OXIDE/AA Branch CHELATE, ORAL) ELISABETH 2019-02 Yes Take by Univers ASPIRIN 1-16 mouth. ity of ORAL 23:17: [place] [address] Medical Branch MAGNESIUM 2019-02 Yes Take by Univ ers OXIDE/MAG 1-16 mouth. ity of AA CHELATE 23:17: [place] (MAGNESIUM, 31 Medical OXIDE/AA Branch CHELATE, ORAL) ELISABETH 2019-02 Yes Take by Univers ASPIRIN 1-16 mouth. ity of ORAL 23:17: [place] [address] Medical Branch MAGNESIUM 2019-02 Yes Take by Univ ers OXIDE/MAG 1-16 mouth. ity of AA CHELATE 23:17: [place] (MAGNESIUM, 31 Medical OXIDE/AA Branch CHELATE, ORAL) ELISABETH 2019-02 Yes Take by Univers ASPIRIN 1-16 mouth. ity of ORAL 23:17: [place] [address] Medical Branch MAGNESIUM 2019-02 Yes Take by Univ ers OXIDE/MAG 1-16 mouth. ity of AA CHELATE 17:17: [place] (MAGNESIUM, 31 Medical OXIDE/AA Branch CHELATE, ORAL) ELISABETH 2019-02 Yes Take by Univers ASPIRIN 1-16 mouth. ity of ORAL 17:17: [place] [address] Medical Branch MAGNESIUM 2019-02 Yes Take by Univ ers OXIDE/MAG 1-16 mouth. ity of AA CHELATE 17:17: [place] (MAGNESIUM, 31 Medical OXIDE/AA Branch CHELATE, ORAL) meloxicam 2019-02 Yes 7.5mg Take 7.5 Uni vers 7.5 mg TbDL 0-19 mg by ity of 00:00: mouth [place] 00 daily. Medical Branch meloxicam 2019-02 Yes 7.5mg Take 7.5 Uni vers 7.5 mg TbDL 0-19 mg by ity of 00:00: mouth [place] 00 daily. Medical Branch meloxicam 2019-02 Yes [...] 00 :00 daily. Medical Branch meloxicam No [id number] 15mg Take 1 U nivers 15 mg 6-05 07-06 tablet by ity of tablet 00:00: 04:59 mouth [place] 00 :00 daily for Medical 30 days. Branch triamcinolo 2019- 2020- No 40mg Unive rs ne 07-09 ity of acetonide 15:30: 14:21 [place] (KENALOG) 00 :00 Medical injection Branch 40 mg triamcinolo 2019- 2020- No 40mg 40 mg, Uni vers ne 07-09 Intramuscu ity of acetonide 15:30: 14:21 [place], [place]CE, [place] (KENALOG[place] 00 :00 1 dose, Medical injection Fri Branch 40 mg 07/10/19 at 1030, Routine triamcinolo 2019-2019- No 40mg Unive rs ne 07-09 ity of acetonide 15:30: 14:21 [place] (KENALOG) 00 :00 Medical injection Branch 40 mg triamcinolo 2019- 2020- No 40mg 40 mg, Uni vers ne 07-09 Intramuscu ity of acetonide 15:30: 14:21 [place], [place]CE, [place] (KENALOG) 00 :00 1 dose, Medical injection Fri Branch 40 mg 07/10/19 at 1030, Routine METFORMIN 2017-02 Yes [id number] TAKE 2 U nivers ER 500 mg 1-08 TABLETS ity of 24 hr 00:00: TWICE A [place] tablet 00 DAY WITH Medical MEALS Branch METFORMIN 2017-02 Yes [id number] TAKE 2 U nivers ER 500 mg 1-08 TABLETS ity of 24 hr 00:00: TWICE A [place] tablet DAY WITH Medical MEALS Branch METFORMIN 2017- Yes [id number] TAKE 2 U nivers ER 500 mg 1-08 TABLETS ity of 24 hr 00:00: TWICE A [place] tablet DAY WITH Medical MEALS Branch METFORMIN 2017-02 Yes [id number] TAKE 2 U nivers ER 500 mg 1-08 TABLETS ity of 24 hr 00:00: TWICE A [place] tablet DAY WITH Medical MEALS Branch METFORMIN 2017-02 Yes [id number] TAKE 2 U nivers ER 500 mg 1-08 TABLETS ity of 24 hr 00:00: TWICE A [place] tablet DAY WITH Medical MEALS Branch METFORMIN 2017-02 Yes [id number] TAKE 2 U nivers ER 500 mg 1-08 TABLETS ity of 24 hr 00:00: TWICE A [place] tablet DAY WITH Medical MEALS Branch METFORMIN 2017-02 Yes [id number] TAKE 2 U nivers ER 500 mg 1-08 TABLETS ity of 24 hr 00:00: TWICE A [place] tablet WITH Medical MEALS Branch METFORMIN 2017-02 Yes [id number] TAKE 2 U nivers ER 500 mg 1-08 TABLETS ity of 24 hr 00:00: TWICE A [place] tablet DAY WITH Medical MEALS Branch METFORMIN 2017-02 Yes [id number] TAKE 2 U nivers ER 500 mg 1-08 TABLETS ity of 24 hr 00:00: TWICE A [place] tablet DAY WITH Medical MEALS Branch METFORMIN 2017-02 Yes [id number] TAKE 2 U nivers ER 500 mg 1-08 TABLETS ity of 24 hr 00:00: TWICE A [place] tablet DAY WITH Medical MEALS Branch METFORMIN 2017- Yes [id number] TAKE 2 U nivers ER 500 mg 1-08 TABLETS ity of 24 hr 00:00: TWICE A [place] tablet DAY WITH Medical MEALS Branch METFORMIN 2017-02 Yes [id number] TAKE 2 U nivers ER 500 mg 1-08 TABLETS ity of 24 hr 00:00: TWICE A [place] tablet DAY WITH Medical MEALS Branch METFORMIN 2017-02 Yes [id number] TAKE 2 U nivers ER 500 mg 1-08 TABLETS ity of 24 hr 00:00: TWICE A [place] tablet DAY WITH Medical MEALS Branch METFORMIN 2017-02 Yes [id number] TAKE 2 U nivers ER 500 mg 1-08 TABLETS ity of 24 hr 00:00: TWICE A [place] tablet DAY WITH Medical MEALS Branch METFORMIN 2017-02 Yes [id number] TAKE 2 U nivers ER 500 mg 1-08 TABLETS ity of 24 hr 00:00: TWICE A [place] tablet DAY WITH Medical MEALS Branch METFORMIN 2017- Yes [id number] TAKE 2 U nivers ER 500 mg 1-08 TABLETS ity of 24 hr 00:00: TWICE A [place] tablet DAY WITH Medical MEALS Branch METFORMIN 2017- Yes [id number] TAKE 2 U nivers ER 500 mg 1-08 TABLETS ity of 24 hr 00:00: TWICE A [place] tablet DAY WITH Medical MEALS Branch METFORMIN 2017- Yes [id number] TAKE 2 U nivers ER 500 mg 1-08 TABLETS ity of 24 hr 00:00: TWICE A [place] tablet DAY WITH Medical MEALS Branch ONETOUCH 2017-0 Yes USE ONE Univer s [...] ONCE DAILY Branch AND NEEDED TRESIBA Yes [id number] 40U INJECT 40 U nivers FLEXTOUCH 8-21 UNITS ity of U-200 200 00:00: UNDER THE [place] unit/mL (3 00 SKIN DAILY Med ical mL) InPn Branch TRESIBA Yes [id number] 40U INJECT 40 U nivers FLEXTOUCH 8-21 UNITS ity of U-200 200 00:00: UNDER THE [place] unit/mL (3 00 SKIN DAILY Med ical mL) [facility] 2017-0 Yes [id number] 40U INJECT 40 U nivers FLEXTOUCH 8-21 UNITS ity of U-200 200 00:00: UNDER THE [place] unit/mL (3 00 SKIN DAILY Med ical mL) [facility] 0 Yes [id number] 40U INJECT 40 U nivers FLEXTOUCH 8-21 UNITS ity of U-200 200 00:00: UNDER THE [place] unit/mL (3 00 SKIN DAILY Med ical mL) [facility] 0 Yes [id number] 40U INJECT 40 U nivers FLEXTOUCH 8-21 UNITS ity of U-200 200 00:00: UNDER THE [place] unit/mL (3 00 SKIN DAILY Med ical mL) [facility] 0 Yes [id number] 40U INJECT 40 U nivers FLEXTOUCH 8-21 UNITS ity of U-200 200 00:00: UNDER THE [place] unit/mL (3 00 SKIN DAILY Med ical mL) [facility] 0 Yes [id number] 40U INJECT 40 U nivers FLEXTOUCH 8-21 UNITS ity of U-200 200 00:00: UNDER THE [place] unit/mL (3 00 SKIN DAILY Med ical mL) [facility] 2017-0 Yes [id number] 40U INJECT 40 U nivers FLEXTOUCH 8-21 UNITS ity of U-200 200 00:00: UNDER THE [place] unit/mL (3 00 SKIN DAILY Med ical mL) [facility] 0 Yes [id number] 40U INJECT 40 U nivers FLEXTOUCH 8-21 UNITS ity of U-200 200 00:00: UNDER THE [place] unit/mL (3 00 SKIN DAILY Med ical mL) [facility] 2017-0 Yes [id number] 40U INJECT 40 U nivers FLEXTOUCH 8-21 UNITS ity of U-200 200 00:00: UNDER THE [place] unit/mL (3 00 SKIN DAILY Med ical mL) [facility] 0 Yes [id number] 40U INJECT 40 U nivers FLEXTOUCH 8-21 UNITS ity of U-200 200 00:00: UNDER THE [place] unit/mL (3 00 SKIN DAILY Med ical mL) [facility] Yes [id number] 40U INJECT 40 U nivers FLEXTOUCH 8-21 UNITS ity of U-200 200 00:00: UNDER THE [place] unit/mL (3 00 SKIN DAILY Med ical mL) [facility] Yes [id number] 40U INJECT 40 U nivers FLEXTOUCH 8-21 UNITS ity of U-200 200 00:00: UNDER THE [place] unit/mL (3 00 SKIN DAILY Med ical mL) [facility] Yes [id number] 40U INJECT 40 U nivers FLEXTOUCH 8-21 UNITS ity of U-200 200 00:00: UNDER THE [place] unit/mL (3 00 SKIN DAILY Med ical mL) [facility] Yes [id number] 40U INJECT 40 U nivers FLEXTOUCH 8-21 UNITS ity of U-200 200 00:00: UNDER THE [place] unit/mL (3 00 SKIN DAILY Med ical mL) [facility] Yes [id number] 40U INJECT 40 U nivers FLEXTOUCH 8-21 UNITS ity of U-200 200 00:00: UNDER THE [place] unit/mL (3 00 SKIN DAILY Med ical mL) [facility] Yes [id number] 40U INJECT 40 U nivers FLEXTOUCH 8-21 UNITS ity of U-200 200 00:00: UNDER THE [place] unit/mL (3 00 SKIN DAILY Med ical mL) [facility] Yes [id number] 40U INJECT 40 U nivers FLEXTOUCH 8-21 UNITS ity of U-200 200 00:00: UNDER THE [place] unit/mL (3 00 SKIN DAILY Med ical mL) [facility] ATORVASTATI Yes TAKE 1 Univ ers N 40 mg 7-25 TABLET AT ity of tablet 00:00: BEDTIME [address] ATORVASTATI Yes TAKE 1 Univ ers N 40 mg 7-25 TABLET AT ity of tablet 00:00: BEDTIME [address] ATORVASTATI Yes TAKE 1 Univ ers N 40 mg 7-25 TABLET AT ity of tablet 00:00: BEDTIME [place] 00 Medical Branch ATORVASTATI [address] Yes TAKE 1 Univ ers N 40 mg 7-25 TABLET AT ity of tablet 00:00: BEDTIME Medical Branch ATORVASTATI 2017-0 Yes TAKE 1 Univ ers N 40 mg 7-25 TABLET AT ity of tablet 00:00: BEDTIME Medical Branch ATORVASTATI 0 Yes TAKE 1 Univ ers N 40 mg 7-25 TABLET AT ity of tablet 00:00: BEDTIME Medical Branch ATORVASTATI 2017-0 Yes TAKE 1 Univ ers N 40 [...] of tablet 00:00: BEDTIME Medical Branch ATORVASTATI 2017-0 Yes TAKE 1 Univ ers N 40 mg 7-25 TABLET AT ity of tablet 00:00: BEDTIME [address] PIROXICAM [address] Yes [id number] TAKE 1 Uni vers 20 mg 2-09 CAPSULE ity of capsule 00:00: DAILY WITH [address] PIROXICAM 0 Yes [id number] TAKE 1 Uni vers 20 mg 2-09 CAPSULE ity of capsule 00:00: DAILY WITH [address] PIROXICAM 0 Yes [id number] TAKE 1 Uni vers 20 mg 2-09 CAPSULE ity of capsule 00:00: DAILY WITH [address] PIROXICAM 0 Yes [id number] TAKE 1 Uni vers 20 mg 2-09 CAPSULE ity of capsule 00:00: DAILY WITH [address] PIROXICAM Yes [id number] TAKE 1 Uni vers 20 mg 2-09 CAPSULE ity of capsule 00:00: DAILY WITH [address] PIROXICAM Yes [id number] TAKE 1 Uni vers 20 mg 2-09 CAPSULE ity of capsule 00:00: DAILY WITH [address] PIROXICAM 0 Yes [id number] TAKE 1 Uni vers 20 mg 2-09 CAPSULE ity of capsule 00:00: DAILY WITH [address] PIROXICAM 0 Yes [id number] TAKE 1 Uni vers 20 mg 2-09 CAPSULE ity of capsule 00:00: DAILY WITH [address] PIROXICAM 0 Yes [id number] TAKE 1 Uni vers 20 mg 2-09 CAPSULE ity of capsule 00:00: DAILY WITH [address] PIROXICAM 0 Yes [id number] TAKE 1 Uni vers 20 mg 2-09 CAPSULE ity of capsule 00:00: DAILY WITH [address] PIROXICAM 0 Yes [id number] TAKE 1 Uni vers 20 mg 2-09 CAPSULE ity of capsule 00:00: DAILY WITH [address] PIROXICAM 0 Yes [id number] TAKE 1 Uni vers 20 mg 2-09 CAPSULE ity of capsule 00:00: DAILY WITH [address] PIROXICAM 0 Yes [id number] TAKE 1 Uni vers 20 mg 2-09 CAPSULE ity of capsule 00:00: DAILY WITH [address] PIROXICAM 2018-0 Yes [id number] TAKE 1 Uni vers 20 mg 2-09 CAPSULE ity of capsule 00:00: [place]ILY [place]AK[place]ST Medical Branch PIROXICAM 2018-0 Yes [id number] TAKE 1 Uni vers 20 mg 2-09 CAPSULE ity of capsule 00:00: DAILY WITH [place] BREAKFAST Medical Branch PIROXICAM 2018-0 Yes [id number] TAKE 1 Uni vers 20 mg 2-09 CAPSULE ity of capsule 00:00: [place]ILY [place]AK[place] Branch PIROXICAM 2018-0 Yes [id number] TAKE 1 Uni vers 20 mg 2-09 CAPSULE ity of capsule 00:00[place] [address] [facility] Branch insulin 0 Yes [id number] 10U inject Univ ers aspart 1-03 10-15 ity of (NOVOLOG 00:00: Units [place] FLEXPEN) 00 under the Medica l 100 unit/mL skin 3 Branch injection (three) times daily before meals. Insulin 2017- Yes [id number] Use as Univ ers [place], 1-03 directed- ity of Disposable, 00:00: 5 times [place] (LISA PEN 00 daily Medical NEEDLE) 32 Branch gauge x 5/32" Ndle insulin 2017-0 Yes [id number] 10U inject Univ ers aspart 1-03 10-15 ity of (NOVOLOG 00:00: Units [place] FLEXPEN) 00 under the Medica l 100 unit/mL skin 3 Branch injection (three) times daily before meals. Insulin 2017-0 Yes [id number] Use as Univ ers [place], 1-03 directed- ity of Disposable, 00:00: 5 times [place] (LISA PEN 00 daily Medical NEEDLE) 32 Branch gauge x 5/32" Ndle insulin 2017-0 Yes [id number] 10U inject Univ ers aspart 1-03 10-15 ity of (NOVOLOG 00:00: Units [place] FLEXPEN) 00 under the Medica l 100 unit/mL skin 3 Branch injection (three) times daily before meals. Insulin 2017-0 Yes [id number] Use as Univ ers [place], 1-03 directed- ity of Disposable, 00:00: 5 times [place] (LISA PEN 00 daily Medical NEEDLE) 32 Branch gauge x 5/32" Ndle insulin 2018-0 Yes [id number] 10U inject Univ ers aspart 1-03 10-15 ity of (NOVOLOG 00:00: Units [place] FLEXPEN) 00 under the Medica l 100 unit/mL skin 3 Branch injection (three) times daily before meals. Insulin 2018-0 Yes [id number] Use as Univ ers [place], 1-03 directed- ity of Disposable, 00:00: 5 times [place] (LISA PEN 00 daily Medical NEEDLE) 32 Branch gauge x 5/32" Ndle insulin 2018-0 Yes [id number] 10U inject Univ ers aspart 1-03 10-15 ity of (NOVOLOG 00:00: Units [place] FLEXPEN) 00 under the Medica l 100 unit/mL skin 3 Branch injection (three) times daily before meals. Insulin 2017-0 Yes [id number] Use as Univ ers [place], 1-03 directed- ity of Disposable, 00:00: 5 times [place] (LISA PEN 00 daily Medical NEEDLE) 32 Branch gauge x 5/32" Ndle insulin 2017-0 Yes [id number] 10U inject Univ ers aspart 1-03 10-15 ity of (NOVOLOG 00:00: Units [place] FLEXPEN) 00 under the Medica l 100 unit/mL skin 3 Branch injection (three) times daily before meals. Insulin 2018-0 Yes [id number] Use as Univ ers [place], 1-03 directed- ity of Disposable, 00:00: 5 times [place] (LISA PEN 00 daily Medical NEEDLE) 32 Branch gauge x 5/32" Ndle insulin 2017-0 Yes [id number] 10U inject Univ ers aspart 1-03 10-15 ity of (NOVOLOG 00:00: Units [place] FLEXPEN) 00 under the Medica l 100 unit/mL skin 3 Branch injection (three) times daily before meals. Insulin 2018-0 Yes [id number] Use as Univ ers [place], 1-03 directed- ity of Disposable, 00:00: 5 times [place] (LISA PEN 00 daily Medical NEEDLE) 32 Branch gauge x 5/32" Ndle insulin 2018-0 Yes [id number] 10U inject Univ ers aspart 1-03 10-15 ity of (NOVOLOG 00:00: Units [place] FLEXPEN) 00 under the Medica l 100 unit/mL skin 3 Branch injection (three) times daily before meals. Insulin 2018-0 Yes [id number] Use as Univ ers [place], 1-03 directed- ity of Disposable, 00:00: 5 times [place] (LISA PEN 00 daily Medical NEEDLE) 32 Branch gauge x 5/32" Ndle insulin 2018-0 Yes [id number] 10U inject Univ ers aspart 1-03 10-15 ity of (NOVOLOG 00:00: Units [place] FLEXPEN) 00 under the Medica l 100 unit/mL skin 3 Branch injection (three) times daily before meals. Insulin 2018-0 Yes [id number] Use as Univ ers [place], 1-03 directed- ity of Disposable, 00:00: 5 times [place] (LISA PEN 00 daily Medical NEEDLE) 32 Branch gauge x 5/32" Ndle insulin 2017-0 Yes [id number] 10U inject Univ ers aspart 1-03 10-15 ity of (NOVOLOG 00:00: Units [place] FLEXPEN) 00 under the Medica l 100 unit/mL skin 3 Branch injection (three) times daily before meals. Insulin 2017-0 Yes [id number] Use as Univ ers [place], 1-03 directed- ity of Disposable, 00:00: 5 times [place] (LISA PEN 00 daily Medical NEEDLE) 32 Branch gauge x 5/32" Ndle insulin 2017-0 Yes [id number] 10U inject Univ ers aspart 1-03 10-15 ity of (NOVOLOG 00:00: Units [place] FLEXPEN) 00 under the Medica l 100 unit/mL skin 3 Branch injection (three) times daily before meals. Insulin 2017-0 Yes [id number] Use as Univ ers [place], 1-03 directed- ity of Disposable, 00:00: 5 times [place] (LISA PEN 00 daily Medical NEEDLE) 32 Branch gauge x 5/32" Ndle insulin 2017-0 Yes [id number] 10U inject Univ ers aspart 1-03 10-15 ity of (NOVOLOG 00:00: Units [place] FLEXPEN) 00 under the Medica l 100 unit/mL skin 3 Branch injection (three) times daily before meals. Insulin 0 Yes [id number] Use as Univ ers [place], 1-03 directed- ity of Disposable, 00:00: 5 times [place] (LISA PEN 00 daily Medical NEEDLE) 32 Branch gauge x 5/32" Ndle insulin 2017-0 Yes [id number] 10U inject Univ ers aspart 1-03 10-15 ity of (NOVOLOG 00:00: Units [place] FLEXPEN) 00 under the Medica l 100 unit/mL skin 3 Branch injection (three) times daily before meals. Insulin 2017-0 Yes [id number] Use as Univ ers [place], 1-03 directed- ity of Disposable, 00:00: 5 times [place] (LISA PEN 00 daily Medical NEEDLE) 32 Branch gauge x 5/32" Ndle insulin 2018-0 Yes [id number] 10U inject Univ ers aspart 1-03 10-15 ity of (NOVOLOG 00:00: Units [place] FLEXPEN) 00 under the Medica l 100 unit/mL skin 3 Branch injection (three) times daily before meals. Insulin 2018-0 Yes [id number] Use as Univ ers [place], 1-03 directed- ity of Disposable, 00:00: 5 times [place] (LISA PEN 00 daily Medical NEEDLE) 32 Branch gauge x 5/32" Ndle insulin 2017-0 Yes [id number] 10U inject Univ ers aspart 1-03 10-15 ity of (NOVOLOG 00:00: Units [place] FLEXPEN) 00 under the Medica l 100 unit/mL skin 3 Branch injection (three) times daily before meals. Insulin 2017-0 Yes [id number] Use as Univ ers [place], 1-03 directed- ity of Disposable, 00:00: 5 times [place] (LISA PEN 00 daily Medical NEEDLE) 32 Branch gauge x 5/32" Ndle insulin 2017-0 Yes [id number] 10U inject Univ ers aspart 1-03 10-15 ity of (NOVOLOG 00:00: Units [place] FLEXPEN) 00 under the Medica l 100 unit/mL skin 3 Branch injection (three) times daily before meals. Insulin 2017-0 Yes [id number] Use as Univ ers [place], 1-03 directed- ity of Disposable, 00:00: 5 times [place] (LISA PEN 00 daily Medical NEEDLE) 32 Branch gauge x 5/32" Ndle insulin 2017-0 Yes [id number] 10U inject Univ ers aspart 1-03 10-15 ity of (NOVOLOG 00:00: Units [place] FLEXPEN) 00 under the Medica l 100 unit/mL skin 3 Branch injection (three) times daily before meals. Insulin 2018-0 Yes [id number] Use as Univ ers [place], 1-03 directed- ity of Disposable, 00:00: 5 times [place] (LISA PEN 00 daily Medical NEEDLE) 32 Branch gauge x 5/32" Ndle insulin 2018-0 Yes [id number] 10U inject Univ ers aspart 1-03 10-15 ity of (NOVOLOG 00:00: Units [place] FLEXPEN) 00 under the Medica l 100 unit/mL skin 3 Branch injection (three) times daily before meals. Insulin Yes [id number] Use as Univ ers [place], -03 directed- ity of Disposable, 00:00: 5 times [place] (LISA PEN 00 daily Medical NEEDLE) 32 Branch gauge x 5/32" Ndle multivitami 2016-02 Yes 1{capsu Take 1 Cap Univers n capsule 2-27 le} by mouth ity of 14:27: daily. [address] MAGNESIUM 2016-02 Yes Take by Univ ers OXIDE/MAG 2-27 mouth. ity of AA CHELATE 14:27: [place] (MAGNESIUM, 17 Medical OXIDE/AA Branch CHELATE, ORAL) ELISABETH 2016-02 Yes Take by Univers ASPIRIN 2-27 mouth. ity of ORAL 14:27: [address] multivitami 2016-02 Yes 1{capsu Take 1 Cap Univers n capsule 2-27 le} by mouth ity of 14:27: daily. [address] MAGNESIUM 2016-02 Yes Take by Univ ers OXIDE/MAG 2-27 mouth. ity of AA CHELATE 14:27: [place] (MAGNESIUM, 17 Medical OXIDE/AA Branch CHELATE, ORAL) ELISABETH 2016-02 Yes Take by Univers ASPIRIN 2-27 mouth. ity of ORAL 14:27: [address] multivitami 2016-02 Yes 1{capsu Take 1 Cap Univers n capsule 2-27 le} by mouth ity of 14:27: daily. [address] multivitami 2016-02 Yes 1{capsu Take 1 Cap Univers n capsule 2-27 le} by mouth ity of 14:27: daily. [address] MAGNESIUM 2016-02 Yes Take by Univ ers OXIDE/MAG 2-27 mouth. ity of AA CHELATE 14:27: [place] (MAGNESIUM, 17 Medical OXIDE/AA Branch CHELATE, ORAL) ELISABETH 2016-02 Yes Take by Univers ASPIRIN 2-27 mouth. ity of ORAL 14:27: [address] MAGNESIUM 2016-02 Yes Take by Univ ers OXIDE/MAG 2-27 mouth. ity of AA CHELATE 14:27: [place] (MAGNESIUM, 17 Medical OXIDE/AA Branch CHELATE, ORAL) ELISABETH 2016-02 Yes Take by Univers ASPIRIN 2-27 mouth. ity of ORAL 14:27: [address] multivitami 2016-02 Yes 1{capsu Take 1 Cap Univers n capsule 2-27 le} by mouth ity of 14:27: daily. [address] MAGNESIUM 2017- Yes Take by Univ ers OXIDE/MAG 2-27 mouth. ity of AA CHELATE 14:27: [place] (MAGNESIUM, 17 Medical OXIDE/AA Branch CHELATE, ORAL) ELISABETH 2016-02 Yes Take by Univers ASPIRIN 2-27 mouth. ity of ORAL 14:27: [address] multivitami 2017 Yes 1{capsu Take 1 Cap Univers n capsule 2-27 le} by mouth ity of 14:27: daily. [address] MAGNESIUM 2016-02 Yes Take by Univ ers OXIDE/MAG 2-27 mouth. ity of AA CHELATE 14:27: [place] (MAGNESIUM, 17 Medical OXIDE/AA Branch CHELATE, ORAL) ELISABETH 2016-02 Yes Take by Univers ASPIRIN 2-27 mouth. ity of ORAL 14:27: [address] multivitami 2016-02 Yes 1{capsu Take 1 Cap Univers n capsule 2-27 le} by mouth ity of 14:27: daily. [address] MAGNESIUM 2016-02 Yes Take by Univ ers OXIDE/MAG 2-27 mouth. ity of AA CHELATE 14:27: [place] (MAGNESIUM, 17 Medical OXIDE/AA Branch CHELATE, ORAL) ELISABETH 2016-02 Yes Take by Univers ASPIRIN 2-27 mouth. ity of ORAL 14:27: [address] multivitami 2016-02 Yes 1{capsu Take 1 Cap Univers n capsule 2-27 le} by mouth ity of 14:27: daily. [address] multivitami 2017- Yes 1{capsu Take 1 Cap Univers n capsule 2-27 le} by mouth ity of 14:27: daily. [address] multivitami 2017 Yes 1{capsu Take 1 Cap Univers n capsule 2-27 le} by mouth ity of 14:27: daily. [address] multivitami 2017 Yes 1{capsu Take 1 Cap Univers n capsule 2-27 le} by mouth ity of 14:27: daily. [address] multivitami 2017 Yes 1{capsu Take 1 Cap Univers n capsule 2-27 le} by mouth ity of 14:27: daily. [address] multivitami 2017 Yes 1{capsu Take 1 Cap Univers n capsule 2-27 le} by mouth ity of 14:27: daily. [address] MAGNESIUM 2017- Yes Take by Univ ers OXIDE/MAG 2-27 mouth. ity of AA CHELATE 14:27: [place] (MAGNESIUM, 17 Medical OXIDE/AA Branch CHELATE, ORAL) ELISABETH 2016-02 Yes Take by Univers ASPIRIN 2-27 mouth. ity of ORAL 14:27: [address] multivitami 2016-02 Yes 1{capsu Take 1 Cap Univers n capsule 2-27 le} by mouth ity of 14:27: daily. [address] MAGNESIUM 2016- Yes Take by Univ ers OXIDE/MAG 2-27 mouth. ity of AA CHELATE 14:27: [place] (MAGNESIUM, 17 Medical OXIDE/AA Branch CHELATE, ORAL) ELISABETH 2016-02 Yes Take by Univers ASPIRIN 2-27 mouth. ity of ORAL 14:27: [address] multivitami 2016-02 Yes 1{capsu Take 1 Cap Univers n capsule 2-27 le} by mouth ity of 14:27: daily. [address] MAGNESIUM 2016-02 Yes Take by Univ ers OXIDE/MAG 2-27 mouth. ity of AA CHELATE 14:27: [place] (MAGNESIUM, 17 Medical OXIDE/AA Branch CHELATE, ORAL) ELISABETH 2016-02 Yes Take by Univers ASPIRIN 2-27 mouth. ity of ORAL 14:27: [address] multivitami 2016-02 Yes 1{capsu Take 1 Cap Univers n capsule 2-27 le} by mouth ity of 14:27: daily. [address] MAGNESIUM 2016-02 Yes Take by Univ ers OXIDE/MAG 2-27 mouth. ity of AA CHELATE 14:27: [place] (MAGNESIUM, 17 Medical OXIDE/AA Branch CHELATE, ORAL) ELISABETH 2016-02 Yes Take by Univers ASPIRIN 2-27 mouth. ity of ORAL 14:27: [address] multivitami 2016-02 Yes 1{capsu Take 1 Cap Univers n capsule 2-27 le} by mouth ity of 08:27: daily. [address] multivitami 2016-02 Yes 1{capsu Take 1 Cap Univers n capsule 2-27 le} by mouth ity of 08:27: daily. [address] meloxicam 2016- Yes [id number] 7.5mg Take 1 Un tiki 7.5 mg 2-27 tablet by ity of tablet 00:00: mouth [place] 00 daily. Medical Branch metformin 2016-02 Yes [id number] 1000mg Take 2 Univers ER 500 mg 2-27 tablets by ity of 24 hr 00:00: mouth 2 [place] tablet 00 (two) Medical times Branch daily. meloxicam 2016-02 Yes [id number] 7.5mg Take 1 Un tiki 7.5 mg 2-27 tablet by ity of tablet 00:00: mouth [place] 00 daily. Medical Branch metformin 2016-02 Yes [id number] 1000mg Take 2 Univers ER 500 mg 2-27 tablets by ity of 24 hr 00:00: mouth 2 [place] tablet 00 (two) Medical times Branch daily. meloxicam 2016-02 Yes [id number] 7.5mg Take 1 Un t[place] 7.5 mg 2-27 tablet by ity of tablet 00:00: mouth [place] 00 daily. Medical Branch metformin 2016-02 Yes [id number] 1000mg Take 2 Univers ER 500 mg 2-27 tablets by ity of 24 hr 00:00: mouth 2 [place] tablet 00 (two) Medical times Branch daily. meloxicam 2016-02 Yes [id number] 7.5mg Take 1 Un t[place] 7.5 mg 2-27 tablet by ity of tablet 00:00: mouth [place] 00 daily. Medical Branch metformin 2016-02 Yes [id number] 1000mg Take 2 Univers ER 500 mg 2-27 tablets by ity of 24 hr 00:00: mouth 2 [place] tablet 00 (two) Medical times Branch daily. meloxicam 2016-02 Yes [id number] 7.5mg Take 1 Un t[place] 7.5 mg 2-27 tablet by ity of tablet 00:00: mouth [place] 00 daily. Medical Branch metformin 2016-02 Yes [id number] 1000mg Take 2 Univers ER 500 mg 2-27 tablets by ity of 24 hr 00:00: mouth 2 [place] tablet 00 (two) Medical times Branch daily. meloxicam 2016-02 Yes [id number] 7.5mg Take 1 Un tiki 7.5 mg 2-27 tablet by ity of tablet 00:00: mouth [place] 00 daily. Medical Branch metformin 2016-02 Yes [id number] 1000mg Take 2 Univers ER 500 mg 2-27 tablets by ity of 24 hr 00:00: mouth 2 [place] tablet 00 (two) Medical times Branch daily. meloxicam 2016-02 Yes [id number] 7.5mg Take 1 Un t[place] 7.5 mg 2-27 tablet by ity of tablet 00:00: mouth [place] 00 daily. Medical Branch metformin 2016-02 Yes [id number] 1000mg Take 2 Univers ER 500 mg 2-27 tablets by ity of 24 hr 00:00: mouth 2 [place] tablet 00 (two) Medical times Branch daily. meloxicam 2016-02 Yes [id number] 7.5mg Take 1 Un t[place] 7.5 mg 2-27 tablet by ity of tablet 00:00: mouth [place] 00 daily. Medical Branch metformin 2016-02 Yes [id number] 1000mg Take 2 Univers ER 500 mg 2-27 tablets by ity of 24 hr 00:00: mouth 2 [place] tablet 00 (two) Medical times Branch daily. meloxicam 2016-02 Yes [id number] 7.5mg Take 1 Un t[place] 7.5 mg 2-27 tablet by ity of tablet 00:00: mouth [place] 00 daily. Medical Branch metformin 2016-02 Yes [id number] 1000mg Take 2 Univers ER 500 mg 2-27 tablets by ity of 24 hr 00:00: mouth 2 [place] tablet 00 (two) Medical times Branch daily. meloxicam 2016-02 Yes [id number] 7.5mg Take 1 Un tiki 7.5 mg 2-27 tablet by ity of tablet 00:00: mouth [place] 00 daily. Medical Branch metformin 2016-02 Yes [id number] 1000mg Take 2 Univers ER 500 mg 2-27 tablets by ity of 24 hr 00:00: mouth 2 [place] tablet 00 (two) Medical times Branch daily. metformin 2016-02 Yes [id number] 1000mg Take 2 Univers ER 500 mg 2-27 tablets by ity of 24 hr 00:00: mouth 2 [place] tablet 00 (two) Medical times Branch daily. metformin 2016-02 Yes [id number] 1000mg Take 2 Univers ER 500 mg 2-27 tablets by ity of 24 hr 00:00: mouth 2 [place] tablet 00 (two) Medical times Branch daily. metformin 2016-02 Yes [id number] 1000mg Take 2 Univers ER 500 mg 2-27 tablets by ity of 24 hr 00:00: mouth 2 [place] tablet 00 (two) Medical times Branch daily. metformin 2016-02 Yes [id number] 1000mg Take 2 Univers ER 500 mg 2-27 tablets by ity of 24 hr 00:00: mouth 2 [place] tablet 00 (two) Medical times Branch daily. metformin 2016-02 Yes [id number] 1000mg Take 2 Univers ER 500 mg 2-27 tablets by ity of 24 hr 00:00: mouth 2 [place] tablet 00 (two) Medical times Branch daily. meloxicam 2016-02 Yes [id number] 7.5mg Take 1 Un tiki 7.5 mg 2-27 tablet by ity of tablet 00:00: mouth [place] 00 daily. Medical Branch metformin 2016-02 Yes [id number] 1000mg Take 2 Univers ER 500 mg 2-27 tablets by ity of 24 hr 00:00: mouth 2 [place] tablet 00 (two) Medical times Branch daily. meloxicam 2016-02 Yes [id number] 7.5mg Take 1 Un t[place] 7.5 mg 2-27 tablet by ity of tablet 00:00: mouth [place] 00 daily. Medical Branch metformin 2016-02 Yes [id number] 1000mg Take 2 Univers ER 500 mg 2-27 tablets by ity of 24 hr 00:00: mouth 2 [place] tablet 00 (two) Medical times Branch daily. meloxicam 2016-02 Yes [id number] 7.5mg Take 1 Un t[place] 7.5 mg 2-27 tablet by ity of tablet 00:00: mouth [place] 00 daily. Medical Branch metformin 2016-02 Yes [id number] 1000mg Take 2 Univers ER 500 mg 2-27 tablets by ity of 24 hr 00:00: mouth 2 [place] tablet 00 (two) Medical times Branch daily. meloxicam 2016-02- No [id number] 7.5mg Take 1 U nivers 7.5 mg 2-27 03-26 tablet by ity of tablet 00:00: 00:00 mouth [place] 00 :00 daily. Medical Branch valsartan-h 2014-02 Yes 1{tbl} Take 1 Tab Univers ydrochlorot 0-13 by mouth ity of hiazide 00:00: daily. [place] (DIOVAN-HCT 00 Medical ) 320-25 mg Branch per tablet valsartan-h 2014-02 Yes 1{tbl} Take 1 Tab Univers ydrochlorot 0-13 by mouth ity of hiazide 00:00: daily. [place] (DIOVAN-HCT 00 Medical ) 320-25 mg Branch per tablet valsartan-h 2014-02 Yes 1{tbl} Take 1 Tab Univers ydrochlorot 0-13 by mouth ity of hiazide 00:00: daily. [place] (DIOVAN-HCT [facility] ) 320-25 mg Branch per tablet valsartan-h 2014-02 Yes 1{tbl} Take 1 Tab Univers ydrochlorot 0-13 by mouth ity of hiazide 00:00: daily. [place] (DIOVAN-[facility]CT [facility] ) 320-25 mg Branch per tablet valsartan-h 2014-02 Yes 1{tbl} Take 1 Tab Univers ydrochlorot 0-13 by mouth ity of hiazide 00:00: daily. [place] ([facility]OVAN-[facility] ) 320-25 mg Branch per tablet valsartan-h 2014-02 Yes 1{tbl} Take 1 Tab Univers ydrochlorot 0-13 by mouth ity of hiazide 00:00: daily. [place] ([facility]OVAN-[facility]CT [facility] ) 320-25 mg Branch per tablet valsartan-h 2014-02 Yes 1{tbl} Take 1 Tab Univers ydrochlorot 0-13 by mouth ity of hiazide 00:00: daily. [place] (DIOVAN-[facility]CT [facility] ) 320-25 mg Branch per tablet valsartan-h 2014-02 Yes 1{tbl} Take 1 Tab Univers ydrochlorot 0-13 by mouth ity of hiazide 00:00: daily. [place] ([facility]OVAN-[facility] ) 320-25 mg Branch per tablet valsartan-h 2014-02 Yes 1{tbl} Take 1 Tab Univers ydrochlorot 0-13 by mouth ity of hiazide 00:00: daily. [place] ([facility]OVAN-[facility] ) 320-25 mg Branch per tablet valsartan-h 2014-02 Yes 1{tbl} Take 1 Tab Univers ydrochlorot 0-13 by mouth ity of hiazide 00:00: daily. [place] (DIOVAN-HCT Medical ) 320-25 mg Branch per tablet valsartan-h 2014-02 Yes 1{tbl} Take 1 Tab Univers ydrochlorot 0-13 by mouth ity of hiazide 00:00: daily. [place] ([facility]OVAN-[facility] ) 320-25 mg Branch per tablet valsartan-h 2014-02 Yes 1{tbl} Take 1 Tab Univers ydrochlorot 0-13 by mouth ity of hiazide 00:00: daily. [place] ([facility]OVAN[facility] ) 320-25 mg Branch per tablet valsartan-h 2014-02 Yes 1{tbl} Take 1 Tab Univers ydrochlorot 0-13 by mouth ity of hiazide 00:00: daily. [place] ([facility]OVAN[facility] ) 320-25 mg Branch per tablet valsartan-h 2014-02 Yes 1{tbl} Take 1 Tab Univers ydrochlorot 0-13 by mouth ity of hiazide 00:00: daily. [place] ([facility]OVAN-[facility] ) 320-25 mg Branch per tablet valsartan-h 2014-02 Yes 1{tbl} Take 1 Tab Univers ydrochlorot 0-13 by mouth ity of hiazide 00:00: daily. [place] ([facility]OVAN-[facility] ) 320-25 mg Branch per tablet valsartan-h 2014-02 Yes 1{tbl} Take 1 Tab Univers ydrochlorot 0-13 by mouth ity of hiazide 00:00: daily. [place] ([facility]OVAN-[facility] ) 320-25 mg Branch per tablet valsartan-h 2014-02 Yes 1{tbl} Take 1 Tab Univers ydrochlorot 0-13 by mouth ity of hiazide 00:00: daily. [place] ([facility]OVAN-[facility] ) 320-25 mg Branch per tablet valsartan-h 2014-02 Yes 1{tbl} Take 1 Tab Univers ydrochlorot 0-13 by mouth ity of hiazide 00:00: daily. [place] ([facility]OVAN-[facility]CT [facility] ) 320-25 mg Branch per tablet clopidogrel 2014-02 Yes 75mg Take 75 mg Univers (PLAVIX) 75 0-12 by mouth ity of mg tablet 00:00: daily. [place] Medical Branch fenofibrate 2014-02 Yes 134mg Take 134 U nivers micronized 0-12 mg by ity of (LOFIBRA) 00:00: mouth [place] 134 mg 00 daily. Medical capsule Branch clopidogrel 2014-02 Yes 75mg Take 75 mg Univers (PLAVIX) 75 0-12 by mouth ity of mg tablet 00:00: daily. [place] [address] Medical Branch fenofibrate 2014-02 Yes 134mg Take [...] mouth ity of mg tablet 00:00: daily. [place] 00 Medical Branch fenofibrate 2014-02 Yes 134mg Take 134 U nivers micronized 0-12 mg by ity of (LOFIBRA) 00:00: mouth [place] 134 mg 00 daily. Medical capsule Branch clopidogrel 2014-02- No 75mg Take 75 mg Univers (PLAVIX) 75 0-12 03-26 by mouth ity of mg tablet 00:00: 00:00 daily. [place] 00 Medical Branch clopidogrel 2014-02- No 75mg Take 75 mg Univers (PLAVIX) 75 0-12 03-26 by mouth ity of mg tablet 00:00: 00:00 daily. [place] 00 :00 Medical [place] Vital Signs Vital Name Observation Time Observation Value Comments Source Systolic blood 2020-01-04 23:18:00 146 mm[Hg] Univer sity of pressure [facility] Diastolic blood 2020-01-04 23:18:00 71 mm[Hg] Unive rsity of [facility] Heart rate 2020-01-04 23:18:00 93 /min [facility] Body temperature 2020-01-04 23:18:00 37.17 Melodie [facility] Respiratory rate 2020-01-04 23:18:00 18 /min [facility] Body height 2020-01-04 23:18:00 158.8 cm [facility] Body weight 2020-01-04 23:18:00 72.576 kg [facility] BMI 2020-01-04 23:18:00 28.80 kg/m2 [facility] Oxygen saturation in 2020-01-04 23:18:00 96 /min [facility] Arterial blood by [facility] Pulse oximetry Branch Systolic blood 2020-01-04 23:18:00 146 mm[Hg] Univer sity of [facility] Diastolic blood 2020-01-04 23:18:00 71 mm[Hg] Unive rsity of [facility] Heart rate 2020-01-04 23:18:00 93 /min Universi [facility] Body temperature 2020-01-04 23:18:00 37.17 Melodie [facility] [place] [facility] Respiratory rate 2020-01-04 23:18:00 18 /min Univ ersity of [facility] Body height 2020-01-04 23:18:00 158.8 cm Universi ty of [place] [facility] [place] Body weight 2020-01-04 23:18:00 72.576 kg Universi ty of [place] [facility] [place] BMI 2020-01-04 23:18:00 28.80 kg/m2 Universi ty of [facility] Oxygen saturation in 2020-01-04 23:18:00 96 /min [facility] Arterial blood by [facility] Pulse oximetry Branch Systolic blood 2019-07-10 13:54:00 150 mm[Hg] Univer sity of pressure [facility] Branch Diastolic blood 2019-07-10 13:54:00 67 mm[Hg] Unive rsity of pressure [facility] Heart rate 2019-07-10 13:54:00 103 /min Universi ty of [facility] Body temperature 2019-07-10 13:54:00 37.17 Melodie Univ ersity of [facility] Body height 2019-07-10 13:54:00 160 cm Universi ty of [facility] Body weight 2019-07-10 13:54:00 73.029 kg Universi ty of [facility] Branch BMI 2019-07-10 13:54:00 28.52 kg/m2 Universi ty of [facility] Systolic blood 2019-07-10 13:54:00 150 mm[Hg] Univer sity of pressure [facility] Branch Diastolic blood 2019-07-10 13:54:00 67 mm[Hg] Unive rsity of pressure [facility] Heart rate 2019-07-10 13:54:00 103 /min Universi ty of [facility] Body temperature 2019-07-10 13:54:00 37.17 Melodie Univ ersity of [facility] Body height 2019-07-10 13:54:00 160 cm Universi ty of [facility] Body weight 2019-07-10 13:54:00 73.029 kg Universi ty of [facility] BMI 2019-07-10 13:54:00 28.52 kg/m2 Universi ty of [facility] Procedures Procedure Date / Time Performed Performing Clinician Sourc e XR SHOULDER <2 VW 2019-07-10 13:57:59 Bryan Sim [facility] BILATERAL [facility] ASSIGNMENT OF BENEFITS 2019-07-10 13:45:11 Doctor Unassigned, No [facility] Name [facility] Encounters Start End Encounter Admission Attending Care Care Encounter Source Date/Time Date/Time Type Type Clinicians Facility Department ID 2020-11-10 2020-11-10 Telephone Marcial [facility] 1.2.840.114 [id number] Univers 00:00:00 00:00:00 Lucila Bhakta Load DynamiX 350.1.13.10 it y of [place] 4.2.7.2.686 Tony as Reese?Blea [id number] Pr radha barrientos [address] [facility] 2020-11-09 2020-11-09 [facility] [id number] Univers 00:00:00 00:00:00 Luicla Bhakta Health 350.1.13.10 it y of Surgical 4.2.7.2.686 Tony as Specialti [id number] Pr dical es 198 [facility] 2020-09-07 2020-09-07 [facility] [id number] Univers 00:00:00 00:00:00 Lucila Bhakta Load DynamiX 350.1.13.10 it y of Surgical 4.2.7.2.686 Tony as Specialti [id number] Pr dicmartine tello [address] [place] [address] 2020-06-03 2020-06-03 Outpatient Jabari [facility] [id number] [place] 11:50:00 11:50:00 [facility] 2020-05-13 2020-05-13 Telephone Marcial [facility] 1.2.840.114 [id number] Univers 00:00:00 00:00:00 Lucila Bhakta Load DynamiX 350.1.13.10 it y of Surgical 4.2.7.2.686 Tony as Specialti [id number] Pr dical es [address] [place] [address] 2020-01-04 2020-01-04 Outpatient R [facility] [id number] Univers 19:40:00 19:40:00 [id number] ity [facility] 2020-01-04 2020-01-04 Outpatient R [facility] [id number] Univers 19:40:00 19:40:00 ity [facility] 2020-01-04 2020-01-04 Urgent Provider, [facility] [id number] 16:59:08 17:19:08 Care [facility] 350.1.13.10 Care [place] 4.2.7.2.686 Professio [id number] [place] [address] Office Building [facility] 2020-01-04 2020-01-04 Urgent Provider, [facility] 1.2.840.114 [id number] [facility] 16:59:08 17:19:08 Care [place]ott, [facility] 350.1.13.10 ity of [place] 4.2.7.2.686 Tony as Professio [id number] [address] Office Building One 2020-01-04 2020-01-04 Letter Doctor ESTEBAN 1.2.840.114 [id number] 00:00:00 00:00:00 (Out) Unassigned, CRISTIAN 350.1.13.10 [place] [facility] 4.2.7.2.686 [id number] [facility] 2020-01-04 2020-01-04 Letter Pcp, [facility] 1.2.840.114 [id number] 00:00:00 00:00:00 (Out) Patient Health 350.1.13.10 Does Not [place] 4.2.7.2.686 Have A Professio [id number] [place] [address] Office Building [facility] 2020-01-04 2020-01-04 Letter Doctor ORELLANA 1.2.840.114 [id number] Univers 00:00:00 00:00:00 (Out) Unassigned, CRISTIAN 350.1.13.10 ity of [place] [facility] 4.2.7.2.686 Tony as [id number] [address] 2020-01-04 2020-01-04 Letter Pcp, [facility] 1.2.840.114 [id number] Univers 00:00:00 00:00:00 (Out) Patient Health 350.1.13.10 it y of Does Not [place] 4[place].7.2.686 [place] Have A Professio [id number] [address] Office Building One 2019-12-07 2019-12-07 Telephone Marcial DCANALISA 1.2.840.114 [id number] 00:00:00 00:00:00 Lucila Bhakta Health 350.1.13.10 Surgical 4.2.7.2.686 Specialti [id number] es 198 [place] 2019-12-07 2019-12-07 Telephone Marcial [facility] 1.2.840.114 [id number] Univers 00:00:00 00:00:00 Lucila Bhakta Health 350.1.13.10 it y of Surgical 4.2.7.2.686 Tony as Specialti [id number] Pr dical 198 [facility] 2019-10-16 2019-10-16 Letter ESTEBAN Gibbs 1.2.840.114 [id number] Univers 00:00:00 00:00:00 (Out) Harper FOSTER 350.1.13.10 it y of HOSPITAL 4.2.7.2.686 Tony as [phone] [address] 2019-10-16 2019-10-16 Letter ESTEBAN Gibbs 1.2.840.114 [id number] 00:00:00 00:00:00 (Out) Harper FOSTER 350.1.13.10 HOSPITAL 4.2.7.2.686 [id number] [facility] 2019-10-12 2019-10-12 Laboratory Only, [facility] Test [facility] 1.2.840. 114 [id number] [facility] 08:10:13 08:25:13 Only Art Collins 350.1.13.10 ity [facility] 4.2.7.2.686 [facility] [id number] [facility] [address] [place] 2019-10-12 2019-10-12 Laboratory Only, [facility] 1.2.840.114 [id number] 08:10:13 08:25:13 Only Test [place] 350.1.13.10 [place] 4.2.7.2.686 [place] [id number] 353 2019-10-12 2019-10-12 Outpatient R [facility] [id number] Univers 08:15:00 08:15:00 [id number] ity of [facility] 2019-10-12 2019-10-12 Outpatient R [facility] [id number] Univers 08:15:00 08:15:00 ity of [facility] Branch 2019-07-22 2019-07-22 Telephone [facility] [id number] Univers 00:00:00 00:00:00 [facility] 350.1.13.10 it y of Surgical 4.2.7.2.686 Tony as Specialti [id number] Me dical es 198 [facility] 2019-07-22 2019-07-22 [facility] [id number] 00:00:00 00:00:00 [facility] 350.1.13.10 Surgical 4.2.7.2.686 Specialti [id number] es 198 [place] 2019-07-10 2019-07-10 [facility] [id number] Univers 08:57:59 23:59:00 BRYAN ity [facility] 2019-07-10 2019-07-10 [facility] 1.2.840.114 [id number] 08:57:00 23:59:00 Encounter [facility] 350.1.13.10 Surgical 4.2.7.2.686 Specialti [id number] es 809 [place] 2019-07-10 2019-07-10 [facility] 1.2.840.114 [id number] Univers 08:57:00 23:59:00 Encounter [facility] 350.1.13.10 ity of Surgical 4.2.7.2.686 Tony as Specialti [id number] Me dical es 809 [facility] 2019-07-10 2019-07-10 Office [facility] 1.2.840.114 [id number] 08:46:40 09:01:40 Visit [facility] 350.1.13.10 Surgical 4.2.7.2.686 Specialti [id number] es 198 [place] 2019-07-10 2019-07-10 Office [facility] 1.2.840.114 [id number] [facility] 08:46:40 09:01:40 Visit [facility] 350.1.13.10 it y of Surgical 4.2.7.2.686 Tony as Specialti [id number] Me dical es 198 [facility] 2019-07-10 2019-07-10 Outpatient Zac BRITTANY [facility] [id number] Univers 09:00:00 09:00:00 BRYAN [id number] ity of [facility] 2019-07-10 2019-07-10 [facility] 1.2.840.114 [id number] 00:00:00 00:00:00 (Out) [facility] 350.1.13.10 Surgical 4.2.7.2.686 Specialti [id number] es 198 [place] 2019-07-10 2019-07-10 Orders Doctor ESTEBAN 1.2.840.114 [id number] Univers 00:00:00 00:00:00 Only Unassigned, CRISTIAN 350.1.13.10 ity of [place] [facility] 4.2.7.2.686 Tony as [phone] [address] 2019-07-10 2019-07-10 [facility] 1.2.840.114 [id number] Univers 00:00:00 00:00:00 (Out) [facility] 350.1.13.10 it y of Surgical 4.2.7.2.686 Tony as Specialti [id number] Pr dical es 198 [facility] 2019-07-09 2019-07-09 Outpatient Zac CEJA [facility] [id number] Univers 08:45:00 08:45:00 LUCILA [id number] ity [facility] 2019-07-09 2019-07-09 Outpatient Zac CEJA [facility] [id number] Univers 08:45:00 08:45:00 [facility]-09[facility]18 2006-09-18 Emergency X WENDY [facility] ERT [id number] Univers 07:45:00 08:46:00 DEYANIRA 1 ity o f [facility] Results Test Description Test Time Test Comments Results Result Sourc e Comments XR SHOULDER <2 VW 2019-07-10 There are signs Un iversity of BILATERAL 14:13:51 of degeneration [place] Med ical with superior Branch humeral migration. ?
--- NOTE | 2021-06-03 22:42 | RAD REPORT ---
EXAM DESCRIPTION: CT - Head Brain Wo Cont - 06/03/2021 10:36 pm CLINICAL HISTORY: Headache, new or worsening COMPARISON: No comparisons TECHNIQUE: All CT scans are performed using dose optimization technique as appropriate and may inclu de automated exposure control or mA/KV adjustment according to patient size. FINDINGS: No intracranial hemorrhage, hydrocephalus or extra-axial fluid collection.No areas of brai n edema or evidence of midline shift. The paranasal sinuses and mastoids are clear. The calvarium is intact. IMPRESSION: No acute intracranial abnormality.
[2021-06-03] MEDS ORDERED: PANTOPRAZOLE 40 MG INJ ONE (22:48)
[2021-06-03] MEDS ORDERED: LIDOCAINE VISCOUS 2% SOLN 15 ML UDC ONE (22:48)
[2021-06-03] MEDS ORDERED: MAGNES/ALUMIN/SIMET 30ML UCUP ONE (22:48)
[2021-06-03 23:01] LABS: Absolute Lymphocytes (CBC) 2.4 K/uL (0.7-4.9); Hematocrit 40.3 % (36.0-45.0); Lymphocytes % 25.9 % (15.3-44.8); MPV 8.4 fL (7.6-11.3); RBC Red Blood Cell Count 4.36 M/uL (3.86-4.86)
[2021-06-03 23:42] LABS: Troponin High Sensitivity 10.3 pg/mL (<58.9)
--- NOTE | 2021-06-03 23:46 | ER ---
Nurse's Notes [facility] Name: Re Black Age: 65 yrs Sex: Female : 1955 Arrival Date: 06/03/2021 Time: 21:31 Bed 20 Private MD: Diagnosis: Essential (primary) hypertension;Gastro-esophageal reflux disease without esophagitis Presentation: 06/03 21:54 Chief complaint: Patient states: I went to [facility] and took my blood pressure, noticed jb4 it was 190/109. I have been having headache, nausea, indigestion, neck pain and hip pain. Coronavirus screen: At this time, the client does not indicate any symptoms associated with coronavirus-19. Ebola Screen: No symptoms or risks identified at this time. Initial Sepsis Screen: Does the patient meet any 2 criteria? No. Patient's initial sepsis screen is negative. Does the patient have a suspected source of infection? No. Patient's initial sepsis screen is negative. Risk Assessment: Do you want to hurt yourself or someone else? Patient reports no desire to harm self or others. Onset of symptoms was June 03, 2021. Transition of care: patient was not received from another setting of care. 21:54 Acuity: MELINDA 3 jb4 21:54 Method Of Arrival: Ambulatory jb4 Triage Assessment: 22:37 General: Appears uncomfortable, Behavior is calm, cooperative. Pain: Denies pain. ll3 Neuro: Level of Consciousness is awake, alert, obeys commands, Oriented to person, place, time, situation, Speech is normal, Facial symmetry appears normal, Reports headache. Cardiovascular: Patient's skin is warm and dry. Respiratory: Respiratory effort is even, unlabored, Respiratory pattern is regular, symmetrical. GI: Reports indigestion, nausea. Derm: Skin is pink, warm \T\ dry. Historical: - Allergies: 22:02 Codeine; jb4 22:02 PENICILLINS; jb4 - Home Meds: 22:02 clopidogrel 75 mg oral tab 1 tab once daily [Active]; Aspir-81 81 mg Oral TbEC jb4 [Active]; atorvastatin Oral [Active]; metformin 500 mg Oral tab [Active]; magnesium oxide 400 mg Oral tab [Active]; fenofibrate Oral [Active]; losartan-hydrochlorothiazide 100-25 mg oral tab 1 tab once daily [Active]; d3 [Active]; Potassium Chloride Oral [Active]; - PMHx: 22:02 Diabetes - NIDDM; Hypertension; jb4 - PSHx: 22:02 abdominal mesh; jb4 - Immunization history:: Adult Immunizations up to date. - Social history:: Smoking status: Patient denies any tobacco usage or history of. Patient/guardian denies using alcohol, street drugs. - Family history:: not pertinent. - Hospitalizations: : No recent hospitalization is reported. Screenin:41 Abuse screen: Denies threats or abuse. Nutritional screening: No deficits noted. ll3 Tuberculosis screening: No symptoms or risk factors identified. Fall Risk No fall in past 12 months (0 pts). No secondary diagnosis (0 pts). IV access (20 points). Ambulatory Aid- None/Bed Rest/Nurse Assist (0 pts). Gait- Normal/Bed Rest/Wheelchair (0 pts) Mental Status- Oriented to own ability (0 pts). Total Andujar Fall Scale indicates No Risk (0-24 pts). Assessment: 22:39 General: See triage assessment.. ll3 06/04 00:11 Reassessment: Pt is vomiting, ERP notified, medicated as ordered. ll3 00:11 Reassessment: Pt states symptoms have improved, denies headache at this time. ll3 00:40 Reassessment: Pt denies and nausea, states the medicine helped. ll3 Vital Signs: 06/03 21:54 BP 170 / 89; Pulse 102; Resp 16; Temp 97.9(TE); Pulse Ox 99% on R/A; Weight 72.57 kg; jb4 Height 5 ft. 2 in. (157.48 cm) (R); Pain 0/10; 23:00 BP 149 / 64; Pulse 89; Resp 15; Pulse Ox 98% on R/A; ll3 06/04 00:11 BP 146 / 81; Pulse 88; Resp 14; Pulse Ox 96% on R/A; ll3 06/03 21:54 Body Mass Index 29.26 (72.57 kg, 157.48 cm) jb4 ED Course: 06/03 21:31 Patient arrived in ED. bp1 21:49 Telly Wheeler MD is Attending Physician. rn 22:02 Triage completed. jb4 22:02 Arm band placed on right wrist. jb4 22:38 CT Head Brain wo Cont In Process Unspecified. EDMS 22:41 Patient has correct armband on for positive identification. Bed in low position. Call ll3 light in reach. Side rails up X 1. Adult w/ patient. 22:42 Inserted saline lock: 22 gauge in right antecubital area, using aseptic technique. ds4 Blood collected. 22:52 XRAY Chest (1 view) In Process Unspecified. EDMS 23:37 Toni Denton, RN is Primary Nurse. ll3 04 00:41 No provider procedures requiring assistance completed. IV discontinued, intact, ll3 bleeding controlled, No redness/swelling at site. Pressure dressing applied. Administered Medications: 06/03 22:56 Drug: GI Cocktail without - (Maalox Suspension 30 ml, Lidocaine Liquid 2 % 15 ll3 ml) Route: PO; 23:37 Follow up: Response: No adverse reaction; Marked relief of symptoms ll3 22:57 Drug: ProTONIX (pantoprazole) 40 mg Route: IVP; Site: right antecubital; ll3 23:37 Follow up: Response: No adverse reaction; Marked relief of symptoms ll3 06/04 00:11 Drug: Zofran (Ondansetron) 4 mg Route: IVP; Site: right antecubital; ll3 00:40 Follow up: Response: No adverse reaction; Marked relief of symptoms ll3 Outcome: 06/03 23:46 Discharge ordered by . rn 06/04 00:41 Discharged to home ambulatory, with significant other. ll3 Condition: stable Discharge instructions given to patient, family, Instructed on discharge instructions, follow up and referral plans. Demonstrated understanding of instructions, follow-up care. 00:42 Patient left the ED. ll3 Signatures: Dispatcher [employer] EDMS Telly Wheeler MD MD rn Swanson, Donovan ds4 Devante Barahona RN RN jb4 Trish [facility]send [facility] Toni Denton, JHONNY BARRY ll3
--- NOTE | 2021-06-03 23:47 | EDPHYS ---
Physician Documentation [facility] Name: Re Black Age: 65 yrs Sex: Female : 1955 Arrival Date: 06/03/2021 Time: 21:31 Bed 20 Private MD: ED Physician Telly Wheeler HPI: 06/03 22:42 This 65 yrs old Female presents to ER via Ambulatory with complaints of High rn Blood Pressure. 22:42 The patient has elevated blood pressure and discovered this at a drugstore. Onset: The rn symptoms/episode began/occurred today. Modifying factors: The symptoms are aggravated by nothing. 23:17 Associated signs and symptoms: Pertinent positives:. rn 23:17 Severity of symptoms: At its worst the blood pressure was moderate, in the emergency rn department the blood pressure is improved. The patient has experienced similar episodes in the past. The patient has not recently seen a physician. Pt reports high blood pressure intermittently over last 2 weeks, noted to be 180s/100s today so came in for evaluation since pcp is closed. Reports headache, ringing in ears, malaise, and fatigue. Denies chest pain or sob. Reports has been having symptoms of acid reflux lately and indigestion. NO blood in stool . No recent medication changes or out of meds. . Historical: - Allergies: 22:02 Codeine; jb4 22:02 PENICILLINS; jb4 - Home Meds: 22:02 clopidogrel 75 mg oral tab 1 tab once daily [Active]; Aspir-81 81 mg Oral TbEC jb4 [Active]; atorvastatin Oral [Active]; metformin 500 mg Oral tab [Active]; magnesium oxide 400 mg Oral tab [Active]; fenofibrate Oral [Active]; losartan-hydrochlorothiazide 100-25 mg oral tab 1 tab once daily [Active]; d3 [Active]; Potassium Chloride Oral [Active]; - PMHx: 22:02 Diabetes - NIDDM; Hypertension; jb4 - PSHx: 22:02 abdominal mesh; jb4 - Immunization history:: Adult Immunizations up to date. - Social history:: Smoking status: Patient denies any tobacco usage or history of. Patient/guardian denies using alcohol, street drugs. - Family history:: not pertinent. - Hospitalizations: : No recent hospitalization is reported. ROS: 23:17 Constitutional: Negative for fever, chills, and weight loss, Eyes: Negative for injury, rn pain, redness, and discharge, ENT: Negative for injury, pain, and discharge, Neck: Negative for injury, pain, and swelling, Cardiovascular: Negative for chest pain, palpitations, and edema, Respiratory: Negative for shortness of breath, cough, wheezing, and pleuritic chest pain, Abdomen/GI: Negative for abdominal pain, nausea, vomiting, diarrhea, and constipation, Back: Negative for injury and pain, : Negative for injury, bleeding, discharge, and swelling, MS/Extremity: Negative for injury and deformity, Skin: Negative for injury, rash, and discoloration, Neuro: Negative for numbness, tingling, and seizure. Exam: 23:17 Constitutional: This is a well developed, well nourished patient who is awake, alert, rn and in no acute distress. Joking and jovial Head/Face: Normocephalic, atraumatic. Eyes: Pupils equal round and reactive to light, extra-ocular motions intact. Lids and lashes normal. Conjunctiva and sclera are non-icteric and not injected. Cornea within normal limits. Periorbital areas with no swelling, redness, or edema. Neck: Trachea midline, no masses palpated, and no cervical lymphadenopathy. Supple, full range of motion without nuchal rigidity, or vertebral point tenderness. No Meningismus. Chest/axilla: Normal chest wall appearance and motion. Nontender with no deformity. No lesions are appreciated. Cardiovascular: Tachycardic, regular. No pulse deficits. Respiratory: No increased work of breathing, no retractions or nasal flaring. Abdomen/GI: Soft, non-tender Skin: Warm, dry MS/ Extremity: Pulses equal, no cyanosis. Neurovascular intact. Full, normal range of motion. Equal circumference. Neuro: Awake and alert, GCS 15, oriented to person, place, time, and situation. Cranial nerves II-XII grossly intact. Motor strength 5/5 in all extremities. Sensory grossly intact. Cerebellar exam normal. Normal gait. 06/04 00:07 ECG was reviewed by the Attending Physician. rn Vital Signs: 06/03 21:54 BP 170 / 89; Pulse 102; Resp 16; Temp 97.9(TE); Pulse Ox 99% on R/A; Weight 72.57 kg; jb4 Height 5 ft. 2 in. (157.48 cm) (R); Pain 0/10; 23:00 BP 149 / 64; Pulse 89; Resp 15; Pulse Ox 98% on R/A; ll3 06/04 00:11 BP 146 / 81; Pulse 88; Resp 14; Pulse Ox 96% on R/A; ll3 06/03 21:54 Body Mass Index 29.26 (72.57 kg, 157.48 cm) jb4 MDM: 06/03 21:49 Patient medically screened. rn 23:34 ED course: INdigestion completely resolved after protonix and GI cocktail. CT head no ethernet network architect findings, BP already improving without intervention.. 23:45 Differential diagnosis: hypertensive crisis, Malignant HTN, intracerebral hemorrhage. rn Data reviewed: vital signs, nurses notes, lab test result(s), EKG, radiologic studies, CT scan, plain films, and as a result, I will discharge patient. Counseling: I had a detailed discussion with the patient and/or guardian regarding: the historical points, exam findings, and any diagnostic results supporting the discharge/admit diagnosis, lab results, radiology results, the need for outpatient follow up, to return to the emergency department if symptoms worsen or persist or if there are any questions or concerns that arise at home. Response to treatment: the patient's symptoms have markedly improved after treatment, the patient is now symptom free, and as a result, I will discharge patient. Special discussion: I discussed with the patient/guardian in detail that at this point there is no indication for admission to the hospital. It is understood, however, that if the symptoms persist or worsen the patient needs to return immediately for re-evaluation. Based on the history and exam findings, there is no indication for further emergent testing or inpatient evaluation. I discussed with the patient/guardian the need to see the certified ethical hacker for further evaluation of the symptoms. I discussed with the patient/guardian the need to see the primary care provider for further evaluation of the symptoms. 06/03 22:01 Order name: Basic Metabolic Panel; Complete Time: 23:45 rn 06/03 22: Order name: CBC with Diff; Complete Time: 23:28 rn 06/03 22:01 Order name: CT Head Brain wo Cont; Complete Time: : rn 06/03 22: Order name: NT PRO-BNP; Complete Time: 23:45 rn 06/03 22:01 Order name: Troponin HS; Complete Time: 23:45 rn 06/03 22:01 Order name: XRAY Chest (1 view) rn 06/03 22:01 Order name: EKG; Complete Time: 22:02 rn 06/03 22:01 Order name: Cardiac monitoring; Complete Time: 22:51 rn 06/03 22:01 Order name: EKG - Nurse/Tech; Complete Time: 22:40 rn 06/03 22: Order name: IV Saline Lock; Complete Time: 22:40 rn 06/03 22: Order name: Labs collected and sent; Complete Time: :41 rn 06/03 22: Order name: O2 Per Protocol; Complete Time: : rn 06/03 22: Order name: O2 Sat Monitoring; Complete Time: :41 rn EC/17 00:07 Rate is 92 beats/min. Rhythm is regular. QRS [place] is Normal. HI interval is normal. QRS rn interval is normal. QT interval is normal. No Q waves. T waves are Normal. No ST changes noted. Clinical impression: Normal ECG. Interpreted by me. Reviewed by me. Administered Medications: 06/03 22:56 Drug: GI Cocktail without - (Maalox Suspension 30 ml, Lidocaine Liquid 2 % 15 ll3 ml) Route: PO; 23:37 Follow up: Response: No adverse reaction; Marked relief of symptoms ll3 22:57 Drug: ProTONIX (pantoprazole) 40 mg Route: IVP; Site: right antecubital; ll3 23:37 Follow up: Response: No adverse reaction; Marked relief of symptoms ll3 06/04 00:11 Drug: Zofran (Ondansetron) 4 mg Route: IVP; Site: right antecubital; ll3 00:40 Follow up: Response: No adverse reaction; Marked relief of symptoms ll3 Disposition Summary: 06/03/21 23:46 Discharge Ordered Location: Home rn Problem: an ongoing problem rn Symptoms: have improved rn Condition: Stable rn Diagnosis - Essential (primary) hypertension rn - Gastro-esophageal reflux disease without esophagitis rn Followup: rn - With: Private Physician - When: As needed - Reason: Recheck today's complaints, Re-evaluation by your physician Discharge Instructions: - Discharge Summary Sheet rn - Gastroesophageal Reflux Disease, Adult rn - Hypertension, Adult rn Forms: - Medication Reconciliation Form rn - Thank You Letter rn - 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
[2021-06-04] MEDS ORDERED: ONDANSETRON 4 MG/2 ML VIAL ONE (00:08)
[2021-06-04 01:22] VITALS: TEMP 97.9
[2021-06-04 01:25] VITALS: BP 146/81; O2SAT 96
--- NOTE | 2021-06-05 14:51 | RAD REPORT ---
EXAM DESCRIPTION: RAD - Chest Single View - 06/03/2021 10:50 pm CLINICAL HISTORY: 5 years Female, HTN, epigastric discomfort COMPARISON: None FINDINGS: No focal lung consolidation. No pleural effusion. No pneumothorax. Cardiomediastinal silhouette is within normal limits. No acute osseous abnormality. IMPRESSION: No acute cardiopulmonary disease. Electronically signed by: Fam Perales DO 06/03/2021 11:23 PM CDT Due to temporary technical issues with the PACS/Fluency reporting system, reports are being signed by the in house radiologists without review as a courtesy to insure prompt reporting. The interpreting radiologist is fully responsible for the content of the report.
== END 2021-06-04 00:42 | disposition home or self-care (01) ==
LOC: ER 21:31
DX: I10 Essential (primary) hypertension (principal); K21.9 Gastro-esophageal reflux disease without esophagitis; E11.9 Type 2 diabetes mellitus without complications; Z88.0 Allergy status to penicillin; Z88.5 Allergy status to narcotic agent
CPT/HCPCS: 93005; 85025; 80048; 36415; 84484; 83880; 70450; 71045; 96375; 96374; 99284; C9113; J2405